=== PATIENT | female | born 1975 | race American Indian/Alaskan Native ===

== ENCOUNTER 2017-06-27 20:22 | Inpatient (IN) | payer OTHER ==
[2017-06-27] MEDS ORDERED: ZOFRAN IV ONE (21:19)
[2017-06-27] MEDS ORDERED: REGLAN IV ONE (21:19)
[2017-06-27] MEDS ORDERED: NACL 0.9% 1000 ML 1,000 ML IV ONE ×2 (21:19→21:26)
[2017-06-27] MEDS ORDERED: BENADRYL IV ONE (21:19)
[2017-06-27] MEDS ORDERED: PEPCID IV ONE (21:26)
[2017-06-27] MEDS ORDERED: DILAUDID IV ONE (21:26)
[2017-06-27 21:31] LABS: Hemoglobin 10.4 gm/dl (10.1-14.3); Mean Corpuscular HGB Conc 30 % (30-34)
[2017-06-27 21:32] LABS: Mean Corpuscular Hemoglobin 19 pg (28-32); Mean Corpuscular Volume 63 fl (79-97); Platelet Count 167 K/mm3 (140-440); Red Cell Distribution Width 25.5 % (13.2-15.2)
[2017-06-27 21:57] LABS: Alanine Aminotransferase 14 units/L (7-56); Albumin 4.2 g/dL (3.9-5); BUN/Creatinine Ratio 21; Blood Urea Nitrogen 15 mg/dL (7-17); Calcium 9.4 mg/dL (8.4-10.2); Hemolysis Index 0; Lipase 11 units/L (13-60)
[2017-06-27 22:13] LABS: Basophils % (Manual) 0 % (0.0-1.8); Eosinophils % (Manual) 0 % (0.0-4.3); Total Cells Counted 100
[2017-06-27 22:14] LABS: Anisocytosis 1+; Platelet Estimate Consistent w Auto; Poikilocytosis 1+
[2017-06-27] MEDS ORDERED: NACL ONE (22:23)
--- NOTE | 2017-06-27 23:33 | Cat Scan Report ---
FINAL REPORT PROCEDURE: CT ABDOMEN PELVIS W CON TECHNIQUE: Computerized axial tomography of the abdomen and pelvis was performed after the IV injection of iodinated nonionic contrast. HISTORY: n,v abd pain, hx of gastroparesis COMPARISON: No prior studies are available for comparison. FINDINGS: Visualized lower thorax: No significant abnormality. Liver: Normal size and attenuation. Spleen: Normal size and attenuation. Gallbladder and biliary system: The gallbladder is absent. No dilatation of the biliary ductal system. Pancreas: Normal. Adrenals: Normal. Kidneys: Normal. GI tract: The stomach is normal. The small bowel has a normal caliber. No obstruction, ileus or enteritis. The cecum, appendix and colon are normal.. Lymph nodes and mesentery: Normal. Vasculature: Normal. Bladder: Normal. Reproductive organs: There is a large uterus with multiple cystic and solid masses identified on the uterus. Multiple fibroids are possible. Other etiologies are not excluded. Further differentiation of the uterus and pelvic structures is recommended. This large uterus measures 13 x 8.1 by 7.8 centimeters.. Peritoneum: No free fluid. Musculoskeletal structures: No significant abnormality. Other: None. IMPRESSION: Enlarged uterus with multiple areas of cystic and solid density which could represent benign and malignant etiologies including large fibroids. Further evaluation with ultrasound in perhaps MRI may be appropriate. The ovaries are not seen on this examination. No evidence of intestinal or urinary tract obstruction. No ileus or enteritis. Previous cholecystectomy.
[2017-06-28 00:40] LABS: Bilirubin,Urine NEG (Negative); Blood,Urine LG (Negative); Color,Urine Yellow (Yellow); Mucus,Urine FEW /HPF; Urobilinogen,Urine < 2.0 mg/dL (<2.0)
[2017-06-28 00:41] LABS: RBC,Urine > 182.0 /HPF (0.0-6.0)
[2017-06-28] MEDS ORDERED: NACL 0.9% 1000 ML 1,000 ML IV ONE (00:48)
[2017-06-28] MEDS ORDERED: DILAUDID IV ONE (00:52)
[2017-06-28] MEDS ORDERED: ZOFRAN IV ONE (00:52)
[2017-06-28] MEDS ORDERED: PHENERGAN PR ONE (00:53)
[2017-06-28] MEDS ORDERED: ALUM-MAG HYDROX-SIMETH 200-200-20MG/5ML PO ONE (00:53)
[2017-06-28] MEDS ORDERED: LIDOCAINE VISCOUS 2% PO ONE (00:53)
--- NOTE | 2017-06-28 00:58 | Emergency Department Report ---
ED Abdominal Pain HPI - General Chief Complaint: Abdominal Pain Stated Complaint: CHEST PAIN Time Seen by Provider: 06/27/17 21:18 Source: patient Mode of arrival: Ambulatory Limitations: No Limitations - History of Present Illness Initial Comments: 41-year-old female with a past medical history diabetes, gastroparesis, hypertension, and previous cholecystectomy presents also complaining of nausea, vomiting, abdominal pain, and by mouth intolerance 1 day. Patient states she vomited over 30 times today. Occasionally blood streaked vomitus. She complains of burning aching pain to her entire abdomen worse in epigastric area radiating to the chest. Symptoms feel similar to previous gastroparesis episodes in the past. Last exacerbation was in December 2016. No complaints of fever, diarrhea, melena, or hematochezia. PMD: Dr. Yimi Steiner. She does not see a GI specialist at this time. Patient currently on her menstrual cycle Severity scale (0 -10): 10 - Related Data Home Medications Medication Instructions Recorded Confirmed Last Taken Insulin Aspart [Novolog Flexpen] 1 unit SQ QAC 04/03/13 04/03/13 04/02/13 Insulin Detemir [Levemir Flexpen] 30 units SQ QHS 04/03/13 04/03/13 04/01/13 Previous Rx's Medication Instructions Recorded Last Taken Type Cyclobenzaprine [Flexeril] 10 mg PO TID PRN #20 tablet 07/29/15 Unknown Rx Diclofenac Sodium 75 mg PO Q8H #20 tablet. 07/29/15 Unknown Rx Allergies Allergy/AdvReac Type Severity Reaction Status Date / Time No Known Allergies Allergy Verified 07/29/15 13:14 ED Review of Systems ROS: Stated complaint: CHEST PAIN Other details as noted in HPI Comment: All other systems reviewed and negative ED Past Medical Hx - Past Medical History Previous Medical History?: Yes Hx Hypertension: Yes (no meds) Hx Diabetes: Yes Hx Asthma: No Hx COPD: No Additional medical history: gastroparesis. Uterine fibroids - Surgical History Hx Cholecystectomy: Yes - Social History Smoking Status: Never Smoker Substance Use Type: None - Medications Home Medications: Home Medications Medication Instructions Recorded Confirmed Last Taken Type Insulin Aspart [Novolog Flexpen] 1 unit SQ QAC 04/03/13 04/03/13 04/02/13 History Insulin Detemir [Levemir Flexpen] 30 units SQ QHS 04/03/13 04/03/13 04/01/13 History Cyclobenzaprine [Flexeril] 10 mg PO TID PRN #20 tablet 07/29/15 Unknown Rx Diclofenac Sodium 75 mg PO Q8H #20 tablet. 07/29/15 Unknown Rx ED Physical Exam - General Limitations: No Limitations - Other Other exam information: General: Moderate distress actively vomiting Head exam: Atraumatic, normocephalic Eyes exam: Normal appearance, nonicteric sclerae ENT: Dry mucous memory Neck exam: Normal inspection, full range of motion, no meningismus nontender Respiratory exam: Clear to auscultation bilateral, no wheezes, rales, crackles Cardiovascular: Tachycardic regular rhythm Abdomen: Soft, nondistended, generalized tenderness greatest in the epigastric area, normal bowel sounds, no rebound or guarding Extremity: Full range of motion normal inspection no deformity Back: Normal Inspection, full range of motion, no tenderness Neurologic: Alert, oriented x3, cranial nerves intact, no motor or sensory deficit Psychiatric: normal affect, normal mood Skin: Warm, dry, intact ED Course Vital Signs 06/27/17 20:47 Temperature 98.3 F Pulse Rate 108 H Respiratory 17 Rate Blood Pressure 148/95 O2 Sat by Pulse 99 Oximetry - Reevaluation(s) Reevaluation #1: 06/28/17 00:56 After receiving Zofran, Reglan, Benadryl, Pepcid, 1 L normal saline, and Dilaudid. She continues to have pain and nausea. ED Medical Decision Making - Lab Data Result diagrams: 06/27/17 21:18 06/27/17 21:18 Lab Results 06/27/17 06/27/17 06/27/17 Range/Units 21:18 21:18 21:22 WBC 16.1 H (4.5-11.0) K/mm3 RBC 5.60 H (3.65-5.03) M/mm3 Hgb 10.4 (10.1-14.3) gm/dl Hct 35.0 (30.3-42.9) % MCV 63 L (79-97) fl MCH 19 L (28-32) pg MCHC 30 (30-34) % RDW 25.5 H (13.2-15.2) % Plt Count 167 (140-440) K/mm3 Add Manual Diff Complete Total Counted 100 Seg Neutrophils % Property Management Assistant Seg Neuts % (Manual) 96.0 H (40.0-70.0) % Band Neutrophils % 0 % Lymphocytes % (Manual) 3.0 L (13.4-35.0) % Reactive Lymphs % (Man) 0 % Monocytes % (Manual) 1.0 (0.0-7.3) % Eosinophils % (Manual) 0 (0.0-4.3) % Basophils % (Manual) 0 (0.0-1.8) % Metamyelocytes % 0 % Myelocytes % 0 % Promyelocytes % 0 % Blast Cells % 0 % Nucleated RBC % Not Reportable Seg Neutrophils # Man 15.5 H (1.8-7.7) K/mm3 Band Neutrophils # 0.0 K/mm3 Lymphocytes # (Manual) 0.5 L (1.2-5.4) K/mm3 Abs React Lymphs (Man) 0.0 K/mm3 Monocytes # (Manual) 0.2 (0.0-0.8) K/mm3 Eosinophils # (Manual) 0.0 (0.0-0.4) K/mm3 Basophils # (Manual) 0.0 (0.0-0.1) K/mm3 Metamyelocytes # 0.0 K/mm3 Myelocytes # 0.0 K/mm3 Promyelocytes # 0.0 K/mm3 Blast Cells # 0.0 K/mm3 WBC Morphology Not Reportable Hypersegmented Neuts Not Reportable Hyposegmented Neuts Not Reportable Hypogranular Neuts Not Reportable Smudge Cells Not Reportable Toxic Granulation Not Reportable Toxic Vacuolation Not Reportable Dohle Bodies Not Reportable Pelger-Huet Anomaly Not Reportable [place] Rods Not Reportable Platelet Estimate Consistent w auto Clumped Platelets Not Reportable Plt Clumps, EDTA Not Reportable Large Platelets Not Reportable Giant Platelets Not Reportable Platelet Satelliting Not Reportable Plt Morphology Comment Not Reportable RBC Morphology Not Reportable Dimorphic RBCs Not Reportable Polychromasia Not Reportable Hypochromasia Not Reportable Poikilocytosis 1+ Anisocytosis 1+ Microcytosis Few Macrocytosis Not Reportable Spherocytes Not Reportable Pappenheimer Bodies Not Reportable Sickle Cells Not Reportable Target Cells Not Reportable Tear Drop Cells Not Reportable Ovalocytes Not Reportable Helmet Cells Not Reportable [place] Bodies Not Reportable [place] Rings Not Reportable Webb Cells Not Reportable Bite Cells Not Reportable Crenated Cell Not Reportable Elliptocytes Not Reportable Acanthocytes (Spur) Not Reportable Rouleaux Not Reportable Hemoglobin C Crystals Not Reportable Schistocytes Not Reportable Malaria parasites Not Reportable Vikash Bodies Not Reportable Hem Pathologist Commnt No Sodium 143 (137-145) mmol/L Potassium 4.2 (3.6-5.0) mmol/L Chloride 99.8 (98-107) mmol/L Carbon Dioxide 20 L (22-30) mmol/L Anion Gap 27 mmol/L BUN 15 (7-17) mg/dL Creatinine 0.7 (0.7-1.2) mg/dL Estimated GFR > 60 ml/min BUN/Creatinine Ratio 21 % Glucose 190 H (65-100) mg/dL POC Glucose (70-105) Calcium 9.4 (8.4-10.2) mg/dL Total Bilirubin 0.40 (0.1-1.2) mg/dL AST 16 (5-40) units/L ALT 14 (7-56) units/L Alkaline Phosphatase 86 (35-129) units/L Troponin T < 0.010 (0.00-0.029) ng/mL Total Protein 7.5 (6.3-8.2) g/dL Albumin 4.2 (3.9-5) g/dL Albumin/Globulin Ratio 1.3 % Lipase 11 L (13-60) units/L HCG, Qual Negative (Negative) Urine Color (Yellow) Urine Turbidity (Clear) Urine pH (5.0-7.0) Ur Specific [place] (1.003-1.030) Urine Protein (Negative) mg/dL Urine Glucose (UA) (Negative) mg/dL Urine Ketones (Negative) mg/dL Urine Blood (Negative) Urine Nitrite (Negative) Urine Bilirubin (Negative) Urine Urobilinogen (<2.0) mg/dL Ur Leukocyte Esterase (Negative) Urine WBC (Auto) (0.0-6.0) /HPF Urine RBC (Auto) (0.0-6.0) /HPF U Epithel Cells (Auto) (0-13.0) /HPF Urine Mucus /HPF 04/01/18 04/01/18 04/02/18 Range/Units 21:32 23:32 00:24 WBC (4.5-11.0) K/mm3 RBC (3.65-5.03) M/mm3 Hgb (10.1-14.3) gm/dl Hct (30.3-42.9) % MCV (79-97) fl MCH (28-32) pg MCHC (30-34) % RDW (13.2-15.2) % Plt Count (140-440) K/mm3 Add Manual Diff Total Counted Seg Neutrophils % Seg Neuts % (Manual) (40.0-70.0) % Band Neutrophils % % Lymphocytes % (Manual) (13.4-35.0) % Reactive Lymphs % (Man) % Monocytes % (Manual) (0.0-7.3) % Eosinophils % (Manual) (0.0-4.3) % Basophils % (Manual) (0.0-1.8) % Metamyelocytes % % Myelocytes % % Promyelocytes % % Blast Cells % % Nucleated RBC % Seg Neutrophils # Man (1.8-7.7) K/mm3 Band Neutrophils # K/mm3 Lymphocytes # (Manual) (1.2-5.4) K/mm3 Abs React Lymphs (Man) K/mm3 Monocytes # (Manual) (0.0-0.8) K/mm3 Eosinophils # (Manual) (0.0-0.4) K/mm3 Basophils # (Manual) (0.0-0.1) K/mm3 Metamyelocytes # K/mm3 Myelocytes # K/mm3 Promyelocytes # K/mm3 Blast Cells # K/mm3 WBC Morphology Hypersegmented Neuts Hyposegmented Neuts Hypogranular Neuts Smudge Cells Toxic Granulation Toxic Vacuolation Dohle Bodies Pelger-Huet Anomaly Lorelei Rods Platelet Estimate Clumped Platelets Plt Clumps, EDTA Large Platelets Giant Platelets Platelet Satelliting Plt Morphology Comment RBC Morphology Dimorphic RBCs Polychromasia Hypochromasia Poikilocytosis Anisocytosis Microcytosis Macrocytosis Spherocytes Pappenheimer Bodies Sickle Cells Target Cells Tear Drop Cells Ovalocytes Helmet Cells [place] Bodies [place] Rings [place] Cells Bite Cells Crenated Cell Elliptocytes Acanthocytes (Spur) Rouleaux Hemoglobin C Crystals Schistocytes Malaria parasites Vikash Bodies Hem Pathologist Commnt Sodium (137-145) mmol/L Potassium (3.6-5.0) mmol/L Chloride (98-107) mmol/L Carbon Dioxide (22-30) mmol/L Anion Gap mmol/L BUN (7-17) mg/dL Creatinine (0.7-1.2) mg/dL Estimated GFR ml/min BUN/Creatinine Ratio % Glucose (65-100) mg/dL POC Glucose 134 H (70-105) Calcium (8.4-10.2) mg/dL Total Bilirubin (0.1-1.2) mg/dL AST (5-40) units/L ALT (7-56) units/L Alkaline Phosphatase (35-129) units/L Troponin T < 0.010 (0.00-0.029) ng/mL Total Protein (6.3-8.2) g/dL Albumin (3.9-5) g/dL Albumin/Globulin Ratio % Lipase (13-60) units/L HCG, Qual (Negative) Urine Color Yellow (Yellow) Urine Turbidity Clear (Clear) Urine pH 5.0 (5.0-7.0) Ur Specific [place] 1.051 H (1.003-1.030) Urine Protein 30 mg/dl (Negative) mg/dL Urine Glucose (UA) >=500 (Negative) mg/dL Urine Ketones 80 (Negative) mg/dL Urine Blood Lg (Negative) Urine Nitrite Neg (Negative) Urine Bilirubin Neg (Negative) Urine Urobilinogen < 2.0 (<2.0) mg/dL Ur Leukocyte Esterase Neg (Negative) Urine WBC (Auto) 1.0 (0.0-6.0) /HPF Urine RBC (Auto) > 182.0 (0.0-6.0) /HPF U Epithel Cells (Auto) 2.0 (0-13.0) /HPF Urine Mucus Few /HPF - Radiology Data Radiology results: report reviewed ct a/p IV constrast: IMPRESSION: Enlarged uterus with multiple areas of cystic and solid density which could represent benign and malignant etiologies including large fibroids. Further evaluation with ultrasound in perhaps MRI may be appropriate. The ovaries are not seen on this examination. No evidence of intestinal or urinary tract obstruction. No ileus or enteritis. Previous cholecystectomy. - Medical Decision Making patient continues to have pain and nausea despite treatment. She complains of burning to epigastric area. Additional nausea medication ordered as well as GI cocktail including lidocaine and Maalox. Patient has a very high specific gravity and ketones a urine even after receiving 1 L of IV fluids. She will be admitted to the hospital for further treatment of gastroparesis, dehydration, and pain. - Differential Diagnosis gastroparesis, biliary colic, pancreatitis, obstruction, UTI, Dka Critical Care Time: No Critical care attestation.: If time is entered above; I have spent that time in minutes in the direct care of this critically ill patient, excluding procedure time. ED Disposition Clinical Impression: Gastroparesis due to DM, Abdominal pain, Vomiting, Dehydration Disposition: OP ADMIT IP TO THIS HOSP Is pt being admited?: Yes Condition: Stable Time of Disposition: 01:01 (Dr Chatman/hosp)
[2017-06-28] MEDS ORDERED: SODIUM CHLORIDE FLUSH SYRINGE 10 ML IV PRN (01:59)
[2017-06-28] MEDS ORDERED: MORPHINE IV PRN (01:59)
--- NOTE | 2017-06-28 02:01 | History and Physical Report ---
History of Present Illness Date of examination: 06/28/17 History of present illness: 41 year-old female with a history of diabetic gastroparesis, hypertension, GERD comes to emergency room with complaints of nausea vomiting that started yesterday, unable to tolerate oral intake. Also complaining of left sided abdominal pain which she described as a dull pain, intermittent in nature and lasted for a few seconds, intensity 6/10, no radiation, she cannot identify exacerbating or relieving factors Review Of Systems: Constitutional: no weight loss Ears, eyes, nose, mouth and throat: no nasal congestion, no nasal discharge, no sinus pressure, blurry vision, diplopia Neck: No neck pain or rigidity. Cardiovascular: no chest pain, orthopnea, palpitations Respiratory: no shortness of breath, cough Gastrointestinal: no hematochezia Genitourinary : no dysuria, frequency , hematuria Musculoskeletal: no muscle ache Integumentary: no rash, no pruritis Neurological: no parathesias, focal weakness Endocrine: no cold or heat intolerance, no polyuria or polydipsia Hematologic/Lymphatic: no easy bruising, no easy bleeding, no gland swelling Allergic/Immunologic: no urticaria, no angioedema. Past Medical History: diabetes , GERD, hypertension, gastroparesis Past Surgical History: cholecystectomy, tubal ligation, knee surgery Social history: denies: smoking, alcohol abuse, prescription drug abuse Family history: diabetes, hypertension Medications and Allergies Allergies Allergy/AdvReac Type Severity Reaction Status Date / Time No Known Allergies Allergy Verified 07/29/15 13:14 Home Medications Medication Instructions Recorded Confirmed Last Taken Type Insulin Detemir [Levemir Flexpen] 25 units SQ QHS 04/03/13 06/28/17 06/26/17 History 25 units Insulin Regular, Human 1 units SQ TID MDD 7 06/28/17 06/28/17 06/26/17 History 7 units Ondansetron [Zofran TAB] 4 mg PO Q8HR PRN #15 tablet 07/02/17 Unknown Rx hydrALAZINE [Apresoline TAB] 10 mg PO Q8HR #30 tablet 07/02/17 Unknown Rx oxyCODONE /ACETAMINOPHEN [Percocet 1 tab PO BID PRN #10 tablet 07/02/17 Unknown Rx 5/325] Exam - Physical Exam Narrative exam: Gen. appearance: Patient lying in bed, no apparent distress HEENT: Normocephalic, atraumatic, pupils equally round and reactive to light, extraocular movement intact, and no sclericterus,. No JVD or thyromegaly or nodule,neck supple, no carotid bruit ,mucous membranes moist, no exudate or erythema Heart: S1, S2, regular rate and rhythm Lungs:Clear to ascultation , breathing comfortable Abdomen: Positive bowel sounds, nontender, nondistended, no organomegaly Extremity: No edema, cyanosis, clubbing Skin: No rash, nodules, warm, dry Neuro: Oriented 3, cranial nerves II-12 intact, speech is fluent, motor and sensory intact - Constitutional Vitals: Temp Pulse Resp BP Pulse Ox 98.4 F 116 H 20 161/92 100 06/28/17 01:28 06/28/17 01:28 06/28/17 01:28 06/28/17 01:28 06/28/17 01:28 Results - Labs CBC & Chem 7: 07/02/17 10:19 07/02/17 04:13 Labs: Abnormal lab results 06/27/17 06/27/17 06/27/17 Range/Units 21:18 21:18 21:32 WBC 16.1 H (4.5-11.0) K/mm3 RBC 5.60 H (3.65-5.03) M/mm3 MCV 63 L (79-97) fl MCH 19 L (28-32) pg RDW 25.5 H (13.2-15.2) % Seg Neuts % (Manual) 96.0 H (40.0-70.0) % Lymphocytes % (Manual) 3.0 L (13.4-35.0) % Seg Neutrophils # Man 15.5 H (1.8-7.7) K/mm3 Lymphocytes # (Manual) 0.5 L (1.2-5.4) K/mm3 Carbon Dioxide 20 L (22-30) mmol/L Glucose 190 H (65-100) mg/dL POC Glucose 134 H (70-105) Lipase 11 L (13-60) units/L Ur Specific [place] (1.003-1.030) 06/28/17 Range/Units 00:24 WBC (4.5-11.0) K/mm3 RBC (3.65-5.03) M/mm3 MCV (79-97) fl MCH (28-32) pg RDW (13.2-15.2) % Seg Neuts % (Manual) (40.0-70.0) % Lymphocytes % (Manual) (13.4-35.0) % Seg Neutrophils # Man (1.8-7.7) K/mm3 Lymphocytes # (Manual) (1.2-5.4) K/mm3 Carbon Dioxide (22-30) mmol/L Glucose (65-100) mg/dL POC Glucose (70-105) Lipase (13-60) units/L Ur Specific [place] 1.051 H (1.003-1.030) - Imaging and Cardiology EKG: image reviewed CT scan - abdomen: report reviewed CT scan - pelvis: report reviewed Assessment and Plan Assessment Acute on chronic gastroparesis Abdominal pain nonspecific Diabetes GERD Plan Admit to medicine Start IV fluids, antiemetics IV morphine Continueappropiate outpatient medications check fingersticks and initiate insulin sliding scale DVT prophylaxis
[2017-06-28] MEDS: TYLENOL PO PRN ×2 (03:39→13:57)
[2017-06-28] MEDS: NACL 0.45% 1000 ML 1,000 ML IV SCH (06:44)
[2017-06-28] MEDS: REGLAN IV PRN (07:55)
[2017-06-28] MEDS ORDERED: DILAUDID ONE (08:15)
[2017-06-28] MEDS: DILAUDID IV PRN ×3 (08:21→22:14)
[2017-06-28] MEDS ORDERED: LOVENOX SUB-Q SCH (10:00)
[2017-06-28] MEDS: ZOFRAN IV PRN ×3 (10:52→22:12)
[2017-06-28] MEDS: LOVENOX SUB-Q SCH (10:58)
[2017-06-28] MEDS: SODIUM CHLORIDE FLUSH SYRINGE 10 ML IV SCH (11:00)
[2017-06-28] MEDS ORDERED: PEPCID IV ONE (12:42)
[2017-06-28] MEDS: HumuLIN R SUB-Q SCH ×3 (12:48→22:52)
--- NOTE | 2017-06-28 15:08 | Event Note ---
<MARSHA KNIGHT - Last Filed: 06/28/17 15:08> Date: 06/28/17 Patient was seen and evaluated at the bedside, patient was admitted this morning for NV and abdominal pain, she continues to complain of nausea and abd pain, appears to be in mild distress, continue management per H&P with the following changes-Pt initiated on Pepcid 20mg BID Dilaudid 0.5 Q6HR, SSI for DM <SABINA DELUCA - Last Filed: 06/28/17 19:22> Patient seen and examined medical records reviewed Has intractable nausea vomiting, request for more pain medications Blood sugars are uncontrolled Resume Levemir start 10 units Novolin every before meals at bedtime Encourage oral nutrition Closely monitor Plan of care reviewed with the patient and her nurse
[2017-06-28] MEDS ORDERED: LANTUS SUB-Q SCH (22:00)
[2017-06-28] MEDS: PEPCID IV SCH (22:12)
[2017-06-29] MEDS: SODIUM CHLORIDE FLUSH SYRINGE 10 ML IV SCH ×2 (01:07→09:22)
[2017-06-29] MEDS: REGLAN IV PRN (03:14)
[2017-06-29 06:26] LABS: Mean Corpuscular HGB Conc 29 % (30-34); Red Blood Count 5.29 M/mm3 (3.65-5.03)
[2017-06-29 06:30] LABS: Hematocrit 34.6 % (30.3-42.9); Hemoglobin 9.9 gm/dl (10.1-14.3); Mean Corpuscular Hemoglobin 19 pg (28-32); Mean Corpuscular Volume 66 fl (79-97); Platelet Count 241 K/mm3 (140-440); Red Cell Distribution Width 26.6 % (13.2-15.2)
[2017-06-29] MEDS: DILAUDID IV PRN (06:55)
[2017-06-29] MEDS: ZOFRAN IV PRN (07:06)
[2017-06-29 07:54] LABS: Anisocytosis 2+; Band Neutrophils # (Manual) 0.4 K/mm3; Basophils % (Manual) 0 % (0.0-1.8); Eosinophils % (Manual) 0 % (0.0-4.3); Poikilocytosis 2+; Total Cells Counted 100
[2017-06-29 07:55] LABS: Acanthocytes 1+; Burr Cells Few; Giant Platelets Rare; Helmet Cells Rare; Hypochromasia 1+; Large Platelets Few; Ovalocytes 1+; Schistocytes Rare; Tear Drop Cells Few
[2017-06-29] MEDS: NACL 0.45% 1000 ML 1,000 ML IV SCH (08:27)
--- NOTE | 2017-06-29 08:58 | Progress Note ---
<MARSHA KNIGHT - Last Filed: 06/29/17 15:35> Assessment and Plan Assessment and plan: 41 year-old female admitted for nausea vomiting that one day prior to admission , unable to tolerate oral intake DKA Patient's glucose was uncontrolled and she developed severe acidosis with bicarbonate of 7-8, anion gap 35 (began to close on repeat lab 26) Aggressive IVF were initiated along with bicarb, final repeat today bicarb was 13, Orders were placed for pt to be transferred to ICU for DKA protocol, once there her glucose levels began to decrease without insulin drip, pt will be monitored and likely to be transferred back to medical floor Diabetes ADA diet, Accu checks, Insulin regimen, SSI Hyperkalemia Kayexalate was given, repeat K was normal Acute on chronic gastroparesis IV fluids, antiemetics IV Dilaudid Abdominal pain nonspecific CT of the abdomen showed no evidence of intestinal or urinary tract obstruction. No ileus or enteritis. Enlarged uterus with multiple areas of cystic and solid density which could represent benign and malignant etiologies including large fibroids. Supportive care GERD Pepcid DVT prophylaxis Lovenox History Interval history: Patient seen and examined. Ill appearing, lethargic, still complains of abdominal pain with NV. Labs, nursing and chart notes reviewed. Hospitalist Physical - Constitutional Vitals: Temp Pulse Resp BP Pulse Ox 97.9 F 115 H 18 92/46 93 06/29/17 01:32 06/29/17 01:32 06/29/17 01:32 06/29/17 01:32 06/29/17 01:32 General appearance: Present: no acute distress, cachectic - EENT Eyes: Present: PERRL, EOM intact ENT: hearing intact, clear oral mucosa - Neck Neck: Present: supple, normal ROM - Respiratory Respiratory effort: normal Respiratory: bilateral: CTA - Cardiovascular Rhythm: regular Heart Sounds: Present: S1 & S2 - Extremities Extremities: no ischemia, No edema - Abdominal General gastrointestinal: soft, non-distended, normal bowel sounds - Integumentary Integumentary: Present: clear, warm, dry - Psychiatric Psychiatric: appropriate mood/affect, intact judgment & insight, cooperative - Neurologic Neurologic: CNII-XII intact, moves all extremities - Allied Health Allied health notes reviewed: nursing Results - Labs CBC & Chem 7: 06/29/17 05:53 06/29/17 13:09 Labs: Laboratory Last Values WBC 18.6 K/mm3 (4.5-11.0) H 06/29/17 05:53 RBC 5.29 M/mm3 (3.65-5.03) H 06/29/17 05:53 Hgb 9.9 gm/dl (10.1-14.3) L 06/29/17 05:53 Hct 34.6 % (30.3-42.9) 06/29/17 05:53 MCV 66 fl (79-97) L 06/29/17 05:53 MCH 19 pg (28-32) L 06/29/17 05:53 MCHC 29 % (30-34) L 06/29/17 05:53 RDW 26.6 % (13.2-15.2) H 06/29/17 05:53 Plt Count 241 K/mm3 (140-440) 06/29/17 05:53 Add Manual Diff Complete 06/29/17 05:53 Total Counted 100 06/29/17 05:53 Seg Neutrophils % Warehouse Coordinator 06/27/17 21:18 Seg Neuts % (Manual) 88.0 % (40.0-70.0) H 06/29/17 05:53 Band Neutrophils % 2.0 % 06/29/17 05:53 Lymphocytes % (Manual) 8.0 % (13.4-35.0) L 06/29/17 05:53 Reactive Lymphs % (Man) 0 % 06/29/17 05:53 Monocytes % (Manual) 2.0 % (0.0-7.3) 06/29/17 05:53 Eosinophils % (Manual) 0 % (0.0-4.3) 06/29/17 05:53 Basophils % (Manual) 0 % (0.0-1.8) 06/29/17 05:53 Metamyelocytes % 0 % 06/29/17 05:53 Myelocytes % 0 % 06/29/17 05:53 Promyelocytes % 0 % 06/29/17 05:53 Blast Cells % 0 % 06/29/17 05:53 Nucleated RBC % Not Reportable 06/29/17 05:53 Seg Neutrophils # Man 16.4 K/mm3 (1.8-7.7) H 06/29/17 05:53 Band Neutrophils # 0.4 K/mm3 06/29/17 05:53 Lymphocytes # (Manual) 1.5 K/mm3 (1.2-5.4) 06/29/17 05:53 Abs React Lymphs (Man) 0.0 K/mm3 06/29/17 05:53 Monocytes # (Manual) 0.4 K/mm3 (0.0-0.8) 06/29/17 05:53 Eosinophils # (Manual) 0.0 K/mm3 (0.0-0.4) 06/29/17 05:53 Basophils # (Manual) 0.0 K/mm3 (0.0-0.1) 06/29/17 05:53 Metamyelocytes # 0.0 K/mm3 06/29/17 05:53 Myelocytes # 0.0 K/mm3 06/29/17 05:53 Promyelocytes # 0.0 K/mm3 06/29/17 05:53 Blast Cells # 0.0 K/mm3 06/29/17 05:53 WBC Morphology Not Reportable 06/29/17 05:53 Hypersegmented Neuts Not Reportable 06/29/17 05:53 Hyposegmented Neuts Not Reportable 06/29/17 05:53 Hypogranular Neuts Not Reportable 06/29/17 05:53 Smudge Cells Not Reportable 06/29/17 05:53 Toxic Granulation Not Reportable 06/29/17 05:53 Toxic Vacuolation Not Reportable 06/29/17 05:53 Dohle Bodies Not Reportable 06/29/17 05:53 Pelger-Huet Anomaly Not Reportable 06/29/17 05:53 Lorelei Rods Not Reportable 06/29/17 05:53 Platelet Estimate Appears normal 06/29/17 05:53 Clumped Platelets Not Reportable 06/29/17 05:53 Plt Clumps, EDTA Not Reportable 06/29/17 05:53 Large Platelets Few 06/29/17 05:53 Giant Platelets Rare 06/29/17 05:53 Platelet Satelliting Not Reportable 06/29/17 05:53 Plt Morphology Comment Not Reportable 06/29/17 05:53 RBC Morphology Not Reportable 06/29/17 05:53 Dimorphic RBCs Not Reportable 06/29/17 05:53 Polychromasia 1+ 06/29/17 05:53 Hypochromasia 1+ 06/29/17 05:53 Poikilocytosis 2+ 06/29/17 05:53 Anisocytosis 2+ 06/29/17 05:53 Microcytosis 1+ 06/29/17 05:53 Macrocytosis Not Reportable 06/29/17 05:53 Spherocytes Not Reportable 06/29/17 05:53 Pappenheimer Bodies Not Reportable 06/29/17 05:53 Sickle Cells Not Reportable 06/29/17 05:53 Target Cells Not Reportable 06/29/17 05:53 Tear Drop Cells Few 06/29/17 05:53 Ovalocytes 1+ 06/29/17 05:53 Helmet Cells Rare 06/29/17 05:53 [place] Bodies Not Reportable 06/29/17 05:53 [place] Rings Not Reportable 06/29/17 05:53 [place] Cells Few 06/29/17 05:53 Bite Cells Not Reportable 06/29/17 05:53 Crenated Cell Not Reportable 06/29/17 05:53 Elliptocytes Few 06/29/17 05:53 Acanthocytes (Spur) 1+ 06/29/17 05:53 Rouleaux Not Reportable 06/29/17 05:53 Hemoglobin C Crystals Not Reportable 06/29/17 05:53 Schistocytes Rare 06/29/17 05:53 Malaria parasites Not Reportable 06/29/17 05:53 Vikash Bodies Not Reportable 06/29/17 05:53 Hem Pathologist Commnt No 06/29/17 05:53 Sodium 143 mmol/L (137-145) 06/29/17 05:53 Potassium 5.8 mmol/L (3.6-5.0) H D 06/29/17 05:53 Chloride 106.5 mmol/L (98-107) 06/29/17 05:53 Carbon Dioxide 7 mmol/L (22-30) L* D 06/29/17 05:53 Anion Gap 35 mmol/L 06/29/17 05:53 BUN 30 mg/dL (7-17) H 06/29/17 05:53 Creatinine 1.2 mg/dL (0.7-1.2) D 06/29/17 05:53 Estimated GFR 59 ml/min 06/29/17 05:53 BUN/Creatinine Ratio 25 % 06/29/17 05:53 Glucose 248 mg/dL (65-100) H 06/29/17 05:53 POC Glucose 264 (70-105) H 06/29/17 05:54 Hemoglobin A1c 9.0 % (4-6) H 06/28/17 12:45 Calcium 9.0 mg/dL (8.4-10.2) 06/29/17 05:53 Total Bilirubin 0.40 mg/dL (0.1-1.2) 06/27/17 21:18 AST 16 units/L (5-40) 06/27/17 21:18 ALT 14 units/L (7-56) 06/27/17 21:18 Alkaline Phosphatase 86 units/L (35-129) 06/27/17 21:18 Troponin T < 0.010 ng/mL (0.00-0.029) 06/27/17 23:32 Total Protein 7.5 g/dL (6.3-8.2) 06/27/17 21:18 Albumin 4.2 g/dL (3.9-5) 06/27/17 21:18 Albumin/Globulin Ratio 1.3 % 06/27/17 21:18 Lipase 11 units/L (13-60) L 06/27/17 21:18 HCG, Qual Negative (Negative) 06/27/17 21:22 Urine Color Yellow (Yellow) 06/28/17 00:24 Urine Turbidity Clear (Clear) 06/28/17 00:24 Urine pH 5.0 (5.0-7.0) 06/28/17 00:24 Ur Specific [place] 1.051 (1.003-1.030) H 06/28/17 00:24 Urine Protein 30 mg/dl mg/dL (Negative) 06/28/17 00:24 Urine Glucose (UA) >=500 mg/dL (Negative) 06/28/17 00:24 Urine Ketones 80 mg/dL (Negative) 06/28/17 00:24 Urine Blood Lg (Negative) 06/28/17 00:24 Urine Nitrite Neg (Negative) 06/28/17 00:24 Urine Bilirubin Neg (Negative) 06/28/17 00:24 Urine Urobilinogen < 2.0 mg/dL (<2.0) 06/28/17 00:24 Ur Leukocyte Esterase Neg (Negative) 06/28/17 00:24 Urine WBC (Auto) 1.0 /HPF (0.0-6.0) 06/28/17 00:24 Urine RBC (Auto) > 182.0 /HPF (0.0-6.0) 06/28/17 00:24 U Epithel Cells (Auto) 2.0 /HPF (0-13.0) 06/28/17 00:24 Urine Mucus Few /HPF 06/28/17 00:24 <SABINA DELUCA - Last Filed: 06/29/17 18:58> History Interval history: I saw and evaluated the patient. I agree with the findings and the plan of care as documented in the Nurse Practitioner's~note, with the following corrections and additions. The patient was transferred to ICU on DKA protocol, after treatment with vigorous IV hydration, IV sodium bicarbonate Insulin and clear liquids advance to ADA diet Patient's acidosis and anion gap mildly improved Patient started on diet, and low-dose of long-acting insulin Closely up so for a few hours, and transfer out of ICU to medical floor if stable Critical care time 35 minutes Hospitalist Physical - Constitutional Vitals: Temp Pulse Resp BP Pulse Ox 98.1 F 122 H 16 132/85 100 06/29/17 15:55 06/29/17 16:56 06/29/17 16:56 06/29/17 12:51 06/29/17 16:56 Results - Labs CBC & Chem 7: 06/29/17 05:53 06/29/17 15:18 Labs: Laboratory Last Values WBC 18.6 K/mm3 (4.5-11.0) H 06/29/17 05:53 RBC 5.29 M/mm3 (3.65-5.03) H 06/29/17 05:53 Hgb 9.9 gm/dl (10.1-14.3) L 06/29/17 05:53 Hct 34.6 % (30.3-42.9) 06/29/17 05:53 MCV 66 fl (79-97) L 06/29/17 05:53 MCH 19 pg (28-32) L 06/29/17 05:53 MCHC 29 % (30-34) L 06/29/17 05:53 RDW 26.6 % (13.2-15.2) H 06/29/17 05:53 Plt Count 241 K/mm3 (140-440) 06/29/17 05:53 Add Manual Diff Complete 06/29/17 05:53 Total Counted 100 06/29/17 05:53 Seg Neutrophils % Warehouse Coordinator 06/27/17 21:18 Seg Neuts % (Manual) 88.0 % (40.0-70.0) H 06/29/17 05:53 Band Neutrophils % 2.0 % 06/29/17 05:53 Lymphocytes % (Manual) 8.0 % (13.4-35.0) L 06/29/17 05:53 Reactive Lymphs % (Man) 0 % 06/29/17 05:53 Monocytes % (Manual) 2.0 % (0.0-7.3) 06/29/17 05:53 Eosinophils % (Manual) 0 % (0.0-4.3) 06/29/17 05:53 Basophils % (Manual) 0 % (0.0-1.8) 06/29/17 05:53 Metamyelocytes % 0 % 06/29/17 05:53 Myelocytes % 0 % 06/29/17 05:53 Promyelocytes % 0 % 06/29/17 05:53 Blast Cells % 0 % 06/29/17 05:53 Nucleated RBC % Not Reportable 06/29/17 05:53 Seg Neutrophils # Man 16.4 K/mm3 (1.8-7.7) H 06/29/17 05:53 Band Neutrophils # 0.4 K/mm3 06/29/17 05:53 Lymphocytes # (Manual) 1.5 K/mm3 (1.2-5.4) 06/29/17 05:53 Abs React Lymphs (Man) 0.0 K/mm3 06/29/17 05:53 Monocytes # (Manual) 0.4 K/mm3 (0.0-0.8) 06/29/17 05:53 Eosinophils # (Manual) 0.0 K/mm3 (0.0-0.4) 06/29/17 05:53 Basophils # (Manual) 0.0 K/mm3 (0.0-0.1) 06/29/17 05:53 Metamyelocytes # 0.0 K/mm3 06/29/17 05:53 Myelocytes # 0.0 K/mm3 06/29/17 05:53 Promyelocytes # 0.0 K/mm3 06/29/17 05:53 Blast Cells # 0.0 K/mm3 06/29/17 05:53 WBC Morphology Not Reportable 06/29/17 05:53 Hypersegmented Neuts Not Reportable 06/29/17 05:53 Hyposegmented Neuts Not Reportable 06/29/17 05:53 Hypogranular Neuts Not Reportable 06/29/17 05:53 Smudge Cells Not Reportable 06/29/17 05:53 Toxic Granulation Not Reportable 06/29/17 05:53 Toxic Vacuolation Not Reportable 06/29/17 05:53 Dohle Bodies Not Reportable 06/29/17 05:53 Pel[place] Anomaly Not Reportable 06/29/17 05:53 Lorelei Rods Not Reportable 06/29/17 05:53 Platelet Estimate Appears normal 06/29/17 05:53 Clumped Platelets Not Reportable 06/29/17 05:53 Plt Clumps, EDTA Not Reportable 06/29/17 05:53 Large Platelets Few 06/29/17 05:53 Giant Platelets Rare 06/29/17 05:53 Platelet Satelliting Not Reportable 06/29/17 05:53 Plt Morphology Comment Not Reportable 06/29/17 05:53 RBC Morphology Not Reportable 06/29/17 05:53 Dimorphic RBCs Not Reportable 06/29/17 05:53 Polychromasia 1+ 06/29/17 05:53 Hypochromasia 1+ 06/29/17 05:53 Poikilocytosis 2+ 06/29/17 05:53 Anisocytosis 2+ 06/29/17 05:53 Microcytosis 1+ 06/29/17 05:53 Macrocytosis Not Reportable 06/29/17 05:53 Spherocytes Not Reportable 06/29/17 05:53 Pappenheimer Bodies Not Reportable 06/29/17 05:53 Sickle Cells Not Reportable 06/29/17 05:53 Target Cells Not Reportable 06/29/17 05:53 Tear Drop Cells Few 06/29/17 05:53 Ovalocytes 1+ 06/29/17 05:53 Helmet Cells Rare 06/29/17 05:53 [place] Bodies Not Reportable 06/29/17 05:53 [place] Rings Not Reportable 06/29/17 05:53 [place] Cells Few 06/29/17 05:53 Bite Cells Not Reportable 06/29/17 05:53 Crenated Cell Not Reportable 06/29/17 05:53 Elliptocytes Few 06/29/17 05:53 Acanthocytes (Spur) 1+ 06/29/17 05:53 Rouleaux Not Reportable 06/29/17 05:53 Hemoglobin C Crystals Not Reportable 06/29/17 05:53 Schistocytes Rare 06/29/17 05:53 [place] parasites Not Reportable 06/29/17 05:53 Vikash Bodies Not Reportable 06/29/17 05:53 Hem Pathologist Commnt No 06/29/17 05:53 Sodium 148 mmol/L (137-145) H 06/29/17 15:18 Potassium 4.4 mmol/L (3.6-5.0) 06/29/17 15:18 Chloride 115.8 mmol/L (98-107) H 06/29/17 15:18 Carbon Dioxide 13 mmol/L (22-30) L 06/29/17 15:18 Anion Gap 24 mmol/L 06/29/17 15:18 BUN 24 mg/dL (7-17) H 06/29/17 15:18 Creatinine 0.9 mg/dL (0.7-1.2) 06/29/17 15:18 Estimated GFR > 60 ml/min 06/29/17 15:18 BUN/Creatinine Ratio 27 % 06/29/17 15:18 Glucose 123 mg/dL (65-100) H 06/29/17 15:18 POC Glucose 129 (70-105) H 06/29/17 17:18 Hemoglobin A1c 9.0 % (4-6) H 06/28/17 12:45 Calcium 9.0 mg/dL (8.4-10.2) 06/29/17 15:18 Phosphorus 3.20 mg/dL (2.5-4.5) 06/29/17 11:27 Magnesium 3.00 mg/dL (1.7-2.3) H 06/29/17 11:27 Total Bilirubin 0.40 mg/dL (0.1-1.2) 06/27/17 21:18 AST 16 units/L (5-40) 06/27/17 21:18 ALT 14 units/L (7-56) 06/27/17 21:18 Alkaline Phosphatase 86 units/L (35-129) 06/27/17 21:18 Troponin T < 0.010 ng/mL (0.00-0.029) 06/27/17 23:32 Total Protein 7.5 g/dL (6.3-8.2) 06/27/17 21:18 Albumin 4.2 g/dL (3.9-5) 06/27/17 21:18 Albumin/Globulin Ratio 1.3 % 06/27/17 21:18 Triglycerides 79 mg/dL (2-149) 06/29/17 11:27 Cholesterol 141 mg/dL (50-199) 06/29/17 11:27 LDL Cholesterol Direct 76 mg/dL (50-130) 06/29/17 11:27 HDL Cholesterol 63 mg/dL (40-59) H 06/29/17 11:27 Cholesterol/HDL Ratio 2.23 % 06/29/17 11:27 Lipase 11 units/L (13-60) L 06/27/17 21:18 HCG, Qual Negative (Negative) 06/27/17 21:22 Urine Color Yellow (Yellow) 06/28/17 00:24 Urine Turbidity Clear (Clear) 06/28/17 00:24 Urine pH 5.0 (5.0-7.0) 06/28/17 00:24 Ur Specific [place] 1.051 (1.003-1.030) H 06/28/17 00:24 Urine Protein 30 mg/dl mg/dL (Negative) 06/28/17 00:24 Urine Glucose (UA) >=500 mg/dL (Negative) 06/28/17 00:24 Urine Ketones 80 mg/dL (Negative) 06/28/17 00:24 Urine Blood Lg (Negative) 06/28/17 00:24 Urine Nitrite Neg (Negative) 06/28/17 00:24 Urine Bilirubin Neg (Negative) 06/28/17 00:24 Urine Urobilinogen < 2.0 mg/dL (<2.0) 06/28/17 00:24 Ur Leukocyte Esterase Neg (Negative) 06/28/17 00:24 Urine WBC (Auto) 1.0 /HPF (0.0-6.0) 06/28/17 00:24 Urine RBC (Auto) > 182.0 /HPF (0.0-6.0) 06/28/17 00:24 U Epithel Cells (Auto) 2.0 /HPF (0-13.0) 06/28/17 00:24 Urine Mucus Few /HPF 06/28/17 00:24 Urine Opiates Screen Presumptive negative 06/29/17 09:36 Urine Methadone Screen Presumptive negative 06/29/17 09:36 Ur Barbiturates Screen Presumptive negative 06/29/17 09:36 Ur Phencyclidine Scrn Presumptive negative 06/29/17 09:36 Ur Amphetamines Screen Presumptive negative 06/29/17 09:36 U Benzodiazepines Scrn Presumptive negative 06/29/17 09:36 Urine Cocaine Screen Presumptive negative 06/29/17 09:36 U Marijuana (THC) Screen Presumptive negative 06/29/17 09:36 Drugs of Abuse Note Disclamer 06/29/17 09:36
[2017-06-29] MEDS: HumuLIN R SUB-Q SCH ×2 (09:20→11:55)
[2017-06-29] MEDS: PEPCID IV SCH ×2 (09:21→21:10)
[2017-06-29] MEDS: LOVENOX SUB-Q SCH (09:21)
[2017-06-29] MEDS ORDERED: SODIUM BICARBONATE IV ONE ×2 (09:41→10:00)
[2017-06-29] MEDS ORDERED: NACL 0.9% 1000 ML 1,000 ML IV ONE (10:00)
[2017-06-29] MEDS ORDERED: KIONEX PO ONE (10:00)
[2017-06-29 10:47] LABS: Calcium 9.3 mg/dL (8.4-10.2)
[2017-06-29] MEDS ORDERED: LANTUS SUB-Q SCH (11:00)
[2017-06-29] MEDS ORDERED: D50W (25GM) Syringe IV PRN (11:07)
--- NOTE | 2017-06-29 11:21 | Event Note ---
Date: 06/29/17 Patient seen and examined medical records reviewed Patient is severely dehydrated, cachectic Complaints of severe nausea vomiting Blood sugars are uncontrolled Severe acidosis with bicarbonate of 7-8 Anion gap more than 30 Patient is in DKA We'll transfer the patient to ICU and initiate DKA protocol With insulin drip and vigorous IV hydration Case discussed with the nurse, charge nurse of the floor, charge nurse of ICU I also discussed the case with the behavior support specialist Critical care time 35 minutes
[2017-06-29] MEDS ORDERED: HumuLIN R SUB-Q SCH (11:30)
[2017-06-29 12:14] LABS: BUN/Creatinine Ratio 26; Blood Urea Nitrogen 29 mg/dL (7-17); Calcium 9.3 mg/dL (8.4-10.2); Hemolysis Index 1
[2017-06-29 12:16] LABS: Chol/HDL Ratio 2.23 %
[2017-06-29] MEDS ORDERED: HumuLIN R 100 UNITS in NACL 0.9% 99 ML IV SCH (13:00)
[2017-06-29] MEDS ORDERED: D5W/0.45% NACL/KCL 20 MEQ 20 MEQ/1,000 ML BAG IV SCH (13:30)
[2017-06-29 13:49] LABS: BUN/Creatinine Ratio 26; Blood Urea Nitrogen 26 mg/dL (7-17); Hemolysis Index 1
[2017-06-29 16:08] LABS: BUN/Creatinine Ratio 27; Blood Urea Nitrogen 24 mg/dL (7-17); Hemolysis Index 33
[2017-06-29 16:09] LABS: Amphetamine Screen,Urine PRESUMPTIVE NEGATIVE; Benzodiazepines Screen,Urine PRESUMPTIVE NEGATIVE; Cannabinoid Screen,Urine PRESUMPTIVE NEGATIVE; Cocaine Screen,Urine PRESUMPTIVE NEGATIVE; Methadone Screen,Urine PRESUMPTIVE NEGATIVE; Opiate Screen,Urine PRESUMPTIVE NEGATIVE
[2017-06-29 19:09] LABS: BUN/Creatinine Ratio 23; Blood Urea Nitrogen 21 mg/dL (7-17); Hemolysis Index 23
--- NOTE | 2017-06-29 20:19 | Consultation ---
History of Present Illness Consult date: 06/29/17 Requesting physician: SABINA DELUCA Reason for consult: other (Diabetic ketoacidosis, requiring insulin infusion for glycemic control) History of present illness: This is a 41 year-old female with a history of diabetic gastroparesis, hypertension, GERD comes to emergency room with complaints of nausea vomiting that started yesterday, unable to tolerate oral intake. Also complaining of left sided abdominal pain which she described as a dull pain, intermittent in nature and lasted for a few seconds, intensity 6/10, no radiation, she cannot identify exacerbating or relieving factors She was admitted for diabetic ketoacidosis, requiring an insulin infusion for glycemic control. Review Of Systems: Constitutional: no weight loss Ears, eyes, nose, mouth and throat: no nasal congestion, no nasal discharge, no sinus pressure, blurry vision, diplopia Neck: No neck pain or rigidity. Cardiovascular: no chest pain, orthopnea, palpitations Respiratory: no shortness of breath, cough Gastrointestinal: no hematochezia Genitourinary : no dysuria, frequency , hematuria Musculoskeletal: no muscle ache Integumentary: no rash, no pruritis Neurological: no parathesias, focal weakness Endocrine: no cold or heat intolerance, no polyuria or polydipsia Hematologic/Lymphatic: no easy bruising, no easy bleeding, no gland swelling Allergic/Immunologic: no urticaria, no angioedema. Past Medical History: diabetes , GERD, hypertension, gastroparesis Past Surgical History: cholecystectomy, tubal ligation, knee surgery Social history: denies: smoking, alcohol abuse, prescription drug abuse Family history: diabetes, hypertension Medications and Allergies Allergies Allergy/AdvReac Type Severity Reaction Status Date / Time No Known Allergies Allergy Verified 07/29/15 13:14 Home Medications Medication Instructions Recorded Confirmed Last Taken Type Insulin Detemir [Levemir Flexpen] 25 units SQ QHS 04/03/13 06/28/17 06/26/17 History 25 units Insulin Regular, Human 1 units SQ TID MDD 7 06/28/17 06/28/17 06/26/17 History 7 units Active Meds: Active Medications Acetaminophen (Tylenol) 650 mg PO Q4H PRN PRN Reason: Pain MILD(1-3)/Fever >100.5/RODRIGUEZ Last Admin: 06/28/17 13:57 Dose: 650 mg Dextrose (D50w (25gm) Syringe) 0 ml IV PRN PRN PRN Reason: Hypoglycemia Enoxaparin Sodium (Lovenox) 40 mg SUB-Q QDAY@1000 [facility] Last Admin: 06/29/17 09:21 Dose: 40 mg Famotidine (Pepcid) 20 mg IV BID [facility] Stop: 06/29/17 23:59 Last Admin: 06/29/17 09:21 Dose: 20 mg Hydromorphone HCl (Dilaudid) 0.5 mg IV Q6H PRN PRN Reason: Pain , Severe (7-10) Last Admin: 06/29/17 06:55 Dose: 0.5 mg Insulin Human Regular 100 (units/ Sodium Chloride) 100 mls @ 1 mls/hr IV TITR [facility]; Protocol Insulin Human Isoph/Insulin Regular (Humulin 70/30) 5 unit SUB-Q BIDDIAB [facility] Last Admin: 06/29/17 16:50 Dose: Not Given Metoclopramide HCl (Reglan) 10 mg IV Q6H PRN PRN Reason: Nausea And Vomiting Last Admin: 06/29/17 03:14 Dose: 10 mg Ondansetron HCl (Zofran) 4 mg IV Q4H PRN PRN Reason: Nausea And Vomiting Last Admin: 06/29/17 07:06 Dose: 4 mg Physical Examination Vital signs: Vital Signs Temp Pulse Resp BP Pulse Ox 98.3 F 108 H 17 148/95 99 06/27/17 20:47 06/27/17 20:47 06/27/17 20:47 06/27/17 20:47 06/27/17 20:47 Gen. appearance: Patient lying in bed, no apparent distress Keeps dozing off HEENT: Normocephalic, atraumatic, pupils equally round and reactive to light, extraocular movement intact, and no scleral icterus,. No JVD or thyromegaly or nodule,neck supple, no carotid bruit ,mucous membranes dry, no exudate or erythema Heart: S1, S2, regular rate and rhythm Lungs:Clear to ascultation , breathing comfortable Abdomen: Positive bowel sounds, nontender, nondistended, no organomegaly Extremity: No edema, cyanosis, clubbing Skin: No rash, nodules, warm, dry Neuro: Oriented 3, cranial nerves II-12 intact, speech is fluent, motor and sensory intact Results - Laboratory Findings CBC and BMP: 06/29/17 05:53 06/30/17 11:31 Abnormal lab findings: Abnormal Labs 06/27/17 06/27/17 06/27/17 21:18 21:18 21:32 WBC 16.1 H RBC 5.60 H Hgb MCV 63 L MCH 19 L MCHC RDW 25.5 H Seg Neuts % (Manual) 96.0 H Lymphocytes % (Manual) 3.0 L Seg Neutrophils # Man 15.5 H Lymphocytes # (Manual) 0.5 L Sodium Potassium Chloride Carbon Dioxide 20 L BUN Glucose 190 H POC Glucose 134 H Hemoglobin A1c Magnesium HDL Cholesterol Lipase 11 L Ur Specific [place] 06/28/17 06/28/17 06/28/17 00:24 12:01 12:45 WBC RBC Hgb MCV MCH MCHC RDW Seg Neuts % (Manual) Lymphocytes % (Manual) Seg Neutrophils # Man Lymphocytes # (Manual) Sodium Potassium Chloride Carbon Dioxide BUN Glucose POC Glucose 228 H Hemoglobin A1c 9.0 H Magnesium HDL Cholesterol Lipase Ur Specific [place] 1.051 H 06/28/17 06/28/17 06/29/17 16:33 22:16 05:53 WBC 18.6 H RBC 5.29 H Hgb 9.9 L MCV 66 L MCH 19 L MCHC 29 L RDW 26.6 H Seg Neuts % (Manual) 88.0 H Lymphocytes % (Manual) 8.0 L Seg Neutrophils # Man 16.4 H Lymphocytes # (Manual) Sodium Potassium Chloride Carbon Dioxide BUN Glucose POC Glucose 246 H 289 H Hemoglobin A1c Magnesium HDL Cholesterol Lipase Ur Specific [place] 06/29/17 06/29/17 06/29/17 05:53 05:54 07:21 WBC RBC Hgb MCV MCH MCHC RDW Seg Neuts % (Manual) Lymphocytes % (Manual) Seg Neutrophils # Man Lymphocytes # (Manual) Sodium Potassium 5.8 H D Chloride Carbon Dioxide 7 L* D 7 L* BUN 30 H Glucose 248 H POC Glucose 264 H Hemoglobin A1c Magnesium HDL Cholesterol Lipase Ur Specific [place] 06/29/17 06/29/17 06/29/17 09:59 11:03 11:27 WBC RBC Hgb MCV MCH MCHC RDW Seg Neuts % (Manual) Lymphocytes % (Manual) Seg Neutrophils # Man Lymphocytes # (Manual) Sodium Potassium 5.3 H Chloride 108.8 H Carbon Dioxide 8 L* BUN 30 H Glucose 267 H POC Glucose 265 H Hemoglobin A1c Magnesium 3.00 H HDL Cholesterol 63 H Lipase Ur Specific [place] 06/29/17 06/29/17 06/29/17 11:27 13:09 13:47 WBC RBC Hgb MCV MCH MCHC RDW Seg Neuts % (Manual) Lymphocytes % (Manual) Seg Neutrophils # Man Lymphocytes # (Manual) Sodium 148 H 150 H Potassium Chloride 110.7 H 115.7 H Carbon Dioxide 11 L 13 L BUN 29 H 26 H Glucose 235 H 189 H POC Glucose 160 H Hemoglobin A1c Magnesium HDL Cholesterol Lipase Ur Specific [place] 06/29/17 06/29/17 06/29/17 14:42 15:18 15:32 WBC RBC Hgb MCV MCH MCHC RDW Seg Neuts % (Manual) Lymphocytes % (Manual) Seg Neutrophils # Man Lymphocytes # (Manual) Sodium 148 H Potassium Chloride 115.8 H Carbon Dioxide 13 L BUN 24 H Glucose 123 H POC Glucose 151 H 139 H Hemoglobin A1c Magnesium HDL Cholesterol Lipase Ur Specific [place] 06/29/17 06/29/17 17:18 18:18 WBC RBC Hgb MCV MCH MCHC RDW Seg Neuts % (Manual) Lymphocytes % (Manual) Seg Neutrophils # Man Lymphocytes # (Manual) Sodium 150 H Potassium Chloride 113.5 H Carbon Dioxide 15 L BUN 21 H Glucose 143 H POC Glucose 129 H Hemoglobin A1c Magnesium HDL Cholesterol Lipase Ur Specific [place]
[2017-06-29 21:20] LABS: BUN/Creatinine Ratio 22; Blood Urea Nitrogen 20 mg/dL (7-17); Calcium 8.6 mg/dL (8.4-10.2); Hemolysis Index 1
[2017-06-30] MEDS: ZOFRAN IV PRN ×3 (03:14→21:32)
[2017-06-30] MEDS: DILAUDID IV PRN ×3 (03:21→21:32)
[2017-06-30 05:16] LABS: BUN/Creatinine Ratio 24; Blood Urea Nitrogen 19 mg/dL (7-17); Calcium 8.6 mg/dL (8.4-10.2); Hemolysis Index 0
[2017-06-30] MEDS: REGLAN IV PRN (07:48)
[2017-06-30] MEDS ORDERED: D50W (25GM) Syringe IV PRN (08:36)
--- NOTE | 2017-06-30 09:09 | Progress Note ---
Assessment and Plan Assessment and plan: 41 year-old female admitted for nausea vomiting that one day prior to admission , unable to tolerate oral intake --Diabetic ketoacidosis; resolved --Uncontrolled type1 diabetes mellitus; Accu-Chek sliding scale coverage ADA diet, and just insulin dose --Hypokalemia; replacement protocol and monitor levels --Acute on chronic gastroparesis; antiemetics, Reglan supportive care, --Gastroesophageal reflux disease; continue Pepcid --DVT prophylaxis; Lovenox History Interval history: Patient seen and examined medical records reviewed Physical slightly better today no new complaints poor oral intake Vital Signs reviewed Hospitalist Physical - Constitutional Vitals: Temp Pulse Resp BP Pulse Ox 99.5 F 110 H 18 160/90 97 06/30/17 08:44 06/30/17 08:44 06/30/17 08:44 06/30/17 08:50 06/30/17 08:44 General appearance: Present: no acute distress, cachectic - EENT Eyes: Present: PERRL, EOM intact - Neck Neck: Present: supple, normal ROM - Respiratory Respiratory effort: normal Respiratory: negative: rales, rhonchi, wheezing - Cardiovascular Rhythm: regular Heart Sounds: Present: S1 & S2 - Extremities Extremities: no ischemia, No edema - Abdominal General gastrointestinal: soft, non-tender, non-distended, normal bowel sounds - Integumentary Integumentary: Present: clear, warm - Psychiatric Psychiatric: appropriate mood/affect, cooperative - Neurologic Neurologic: CNII-XII intact, moves all extremities Results - Labs CBC & Chem 7: 06/29/17 05:53 06/30/17 11:31 Labs: Laboratory Last Values WBC 18.6 K/mm3 (4.5-11.0) H 06/29/17 05:53 RBC 5.29 M/mm3 (3.65-5.03) H 06/29/17 05:53 Hgb 9.9 gm/dl (10.1-14.3) L 06/29/17 05:53 Hct 34.6 % (30.3-42.9) 06/29/17 05:53 MCV 66 fl (79-97) L 06/29/17 05:53 MCH 19 pg (28-32) L 06/29/17 05:53 MCHC 29 % (30-34) L 06/29/17 05:53 RDW 26.6 % (13.2-15.2) H 06/29/17 05:53 Plt Count 241 K/mm3 (140-440) 06/29/17 05:53 Add Manual Diff Complete 06/29/17 05:53 Total Counted 100 06/29/17 05:53 Seg Neutrophils % Rough Rounder Machine 06/27/17 21:18 Seg Neuts % (Manual) 88.0 % (40.0-70.0) H 06/29/17 05:53 Band Neutrophils % 2.0 % 06/29/17 05:53 Lymphocytes % (Manual) 8.0 % (13.4-35.0) L 06/29/17 05:53 Reactive Lymphs % (Man) 0 % 06/29/17 05:53 Monocytes % (Manual) 2.0 % (0.0-7.3) 06/29/17 05:53 Eosinophils % (Manual) 0 % (0.0-4.3) 06/29/17 05:53 Basophils % (Manual) 0 % (0.0-1.8) 06/29/17 05:53 Metamyelocytes % 0 % 06/29/17 05:53 Myelocytes % 0 % 06/29/17 05:53 Promyelocytes % 0 % 06/29/17 05:53 Blast Cells % 0 % 06/29/17 05:53 Nucleated RBC % Not Reportable 06/29/17 05:53 Seg Neutrophils # Man 16.4 K/mm3 (1.8-7.7) H 06/29/17 05:53 Band Neutrophils # 0.4 K/mm3 06/29/17 05:53 Lymphocytes # (Manual) 1.5 K/mm3 (1.2-5.4) 06/29/17 05:53 Abs React Lymphs (Man) 0.0 K/mm3 06/29/17 05:53 Monocytes # (Manual) 0.4 K/mm3 (0.0-0.8) 06/29/17 05:53 Eosinophils # (Manual) 0.0 K/mm3 (0.0-0.4) 06/29/17 05:53 Basophils # (Manual) 0.0 K/mm3 (0.0-0.1) 06/29/17 05:53 Metamyelocytes # 0.0 K/mm3 06/29/17 05:53 Myelocytes # 0.0 K/mm3 06/29/17 05:53 Promyelocytes # 0.0 K/mm3 06/29/17 05:53 Blast Cells # 0.0 K/mm3 06/29/17 05:53 WBC Morphology Not Reportable 06/29/17 05:53 Hypersegmented Neuts Not Reportable 06/29/17 05:53 Hyposegmented Neuts Not Reportable 06/29/17 05:53 Hypogranular Neuts Not Reportable 06/29/17 05:53 Smudge Cells Not Reportable 06/29/17 05:53 Toxic Granulation Not Reportable 06/29/17 05:53 Toxic Vacuolation Not Reportable 06/29/17 05:53 Dohle Bodies Not Reportable 06/29/17 05:53 Pelger-Huet Anomaly Not Reportable 06/29/17 05:53 Lorelei Rods Not Reportable 06/29/17 05:53 Platelet Estimate Appears normal 06/29/17 05:53 Clumped Platelets Not Reportable 06/29/17 05:53 Plt Clumps, EDTA Not Reportable 06/29/17 05:53 Large Platelets Few 06/29/17 05:53 Giant Platelets Rare 06/29/17 05:53 Platelet Satelliting Not Reportable 06/29/17 05:53 Plt Morphology Comment Not Reportable 06/29/17 05:53 RBC Morphology Not Reportable 06/29/17 05:53 Dimorphic RBCs Not Reportable 06/29/17 05:53 Polychromasia 1+ 06/29/17 05:53 Hypochromasia 1+ 06/29/17 05:53 Poikilocytosis 2+ 06/29/17 05:53 Anisocytosis 2+ 06/29/17 05:53 Microcytosis 1+ 06/29/17 05:53 Macrocytosis Not Reportable 06/29/17 05:53 Spherocytes Not Reportable 06/29/17 05:53 Pappenheimer Bodies Not Reportable 06/29/17 05:53 Sickle Cells Not Reportable 06/29/17 05:53 Target Cells Not Reportable 06/29/17 05:53 Tear Drop Cells Few 06/29/17 05:53 Ovalocytes 1+ 06/29/17 05:53 Helmet Cells Rare 06/29/17 05:53 Guerrero-[place] Bodies Not Reportable 06/29/17 05:53 Ray Rings Not Reportable 06/29/17 05:53 Barry Cells Few 06/29/17 05:53 Bite Cells Not Reportable 06/29/17 05:53 Crenated Cell Not Reportable 06/29/17 05:53 Elliptocytes Few 06/29/17 05:53 Acanthocytes (Spur) 1+ 06/29/17 05:53 Rouleaux Not Reportable 06/29/17 05:53 Hemoglobin C Crystals Not Reportable 06/29/17 05:53 Schistocytes Rare 06/29/17 05:53 Malaria parasites Not Reportable 06/29/17 05:53 Vikash Bodies Not Reportable 06/29/17 05:53 Hem Pathologist Commnt No 06/29/17 05:53 Sodium 149 mmol/L (137-145) H 06/30/17 03:29 Potassium 3.4 mmol/L (3.6-5.0) L 06/30/17 03:29 Chloride 111.0 mmol/L (98-107) H 06/30/17 03:29 Carbon Dioxide 17 mmol/L (22-30) L 06/30/17 03:29 Anion Gap 24 mmol/L 06/30/17 03:29 BUN 19 mg/dL (7-17) H 06/30/17 03:29 Creatinine 0.8 mg/dL (0.7-1.2) 06/30/17 03:29 Estimated GFR > 60 ml/min 06/30/17 03:29 BUN/Creatinine Ratio 24 % 06/30/17 03:29 Glucose 167 mg/dL (65-100) H 06/30/17 03:29 POC Glucose 165 (70-105) H 06/30/17 06:03 Hemoglobin A1c 9.0 % (4-6) H 06/28/17 12:45 Calcium 8.6 mg/dL (8.4-10.2) 06/30/17 03:29 Phosphorus 3.20 mg/dL (2.5-4.5) 06/29/17 11:27 Magnesium 3.00 mg/dL (1.7-2.3) H 06/29/17 11:27 Total Bilirubin 0.40 mg/dL (0.1-1.2) 06/27/17 21:18 AST 16 units/L (5-40) 06/27/17 21:18 ALT 14 units/L (7-56) 06/27/17 21:18 Alkaline Phosphatase 86 units/L (35-129) 06/27/17 21:18 Troponin T < 0.010 ng/mL (0.00-0.029) 06/27/17 23:32 Total Protein 7.5 g/dL (6.3-8.2) 06/27/17 21:18 Albumin 4.2 g/dL (3.9-5) 06/27/17 21:18 Albumin/Globulin Ratio 1.3 % 06/27/17 21:18 Triglycerides 79 mg/dL (2-149) 06/29/17 11:27 Cholesterol 141 mg/dL (50-199) 06/29/17 11:27 LDL Cholesterol Direct 76 mg/dL (50-130) 06/29/17 11:27 HDL Cholesterol 63 mg/dL (40-59) H 06/29/17 11:27 Cholesterol/HDL Ratio 2.23 % 06/29/17 11:27 Lipase 11 units/L (13-60) L 06/27/17 21:18 HCG, Qual Negative (Negative) 06/27/17 21:22 Urine Color Yellow (Yellow) 06/28/17 00:24 Urine Turbidity Clear (Clear) 06/28/17 00:24 Urine pH 5.0 (5.0-7.0) 06/28/17 00:24 Ur Specific [place] 1.051 (1.003-1.030) H 06/28/17 00:24 Urine Protein 30 mg/dl mg/dL (Negative) 06/28/17 00:24 Urine Glucose (UA) >=500 mg/dL (Negative) 06/28/17 00:24 Urine Ketones 80 mg/dL (Negative) 06/28/17 00:24 Urine Blood Lg (Negative) 06/28/17 00:24 Urine Nitrite Neg (Negative) 06/28/17 00:24 Urine Bilirubin Neg (Negative) 06/28/17 00:24 Urine Urobilinogen < 2.0 mg/dL (<2.0) 06/28/17 00:24 Ur Leukocyte Esterase Neg (Negative) 06/28/17 00:24 Urine WBC (Auto) 1.0 /HPF (0.0-6.0) 06/28/17 00:24 Urine RBC (Auto) > 182.0 /HPF (0.0-6.0) 06/28/17 00:24 U Epithel Cells (Auto) 2.0 /HPF (0-13.0) 06/28/17 00:24 Urine Mucus Few /HPF 06/28/17 00:24 Urine Opiates Screen Presumptive negative 06/29/17 09:36 Urine Methadone Screen Presumptive negative 06/29/17 09:36 Ur Barbiturates Screen Presumptive negative 06/29/17 09:36 Ur Phencyclidine Scrn Presumptive negative 06/29/17 09:36 Ur Amphetamines Screen Presumptive negative 06/29/17 09:36 U Benzodiazepines Scrn Presumptive negative 06/29/17 09:36 Urine Cocaine Screen Presumptive negative 06/29/17 09:36 U Marijuana (THC) Screen Presumptive negative 06/29/17 09:36 Drugs of Abuse Note Disclamer 06/29/17 09:36
[2017-06-30] MEDS: NACL 0.45% 1000 ML 1,000 ML IV SCH ×2 (09:30→19:26)
[2017-06-30] MEDS: LOVENOX SUB-Q SCH (09:57)
[2017-06-30] MEDS ORDERED: PEPCID PO SCH (10:00)
[2017-06-30] MEDS ORDERED: K-DUR PO ONE (10:00)
[2017-06-30 13:38] LABS: BUN/Creatinine Ratio 23; Blood Urea Nitrogen 18 mg/dL (7-17); Calcium 9.2 mg/dL (8.4-10.2); Hemolysis Index 1
[2017-06-30] MEDS: HumuLIN R SUB-Q SCH ×3 (13:48→22:16)
--- NOTE | 2017-06-30 13:54 | Progress Note ---
Subjective Date of service: 06/30/17 Objective - Exam Narrative Exam: Gen. appearance: Patient lying in bed, no apparent distress HEENT: Normocephalic, atraumatic, pupils equally round and reactive to light, extraocular movement intact, and no sclericterus,. No JVD or thyromegaly or nodule,neck supple, no carotid bruit ,mucous membranes moist, no exudate or erythema Heart: S1, S2, regular rate and rhythm Lungs:Clear to ascultation , breathing comfortable Abdomen: Positive bowel sounds, nontender, nondistended, no organomegaly Extremity: No edema, cyanosis, clubbing Skin: No rash, nodules, warm, dry Neuro: Oriented 3, cranial nerves II-12 intact, speech is fluent, motor and sensory intact Vital Signs - 12hr 06/30/17 06/30/17 06/30/17 03:21 03:25 03:51 Temperature Pulse Rate Respiratory 18 18 Rate Respiratory 18 Rate [Abdomen] Blood Pressure Blood Pressure [Left] O2 Sat by Pulse Oximetry 06/30/17 06/30/17 06/30/17 07:35 08:39 08:44 Temperature 99.5 F 99.5 F 99.5 F Pulse Rate 111 H 110 H 110 H Respiratory 18 18 18 Rate Respiratory Rate [Abdomen] Blood Pressure 181/107 Blood Pressure 181/107 181/107 [Left] O2 Sat by Pulse 70 L 97 97 Oximetry 06/30/17 06/30/17 08:50 12:59 Temperature 99.3 F Pulse Rate 115 H Respiratory 18 Rate Respiratory Rate [Abdomen] Blood Pressure 134/80 Blood Pressure 160/90 [Left] O2 Sat by Pulse 97 Oximetry CBC and BMP: 06/29/17 05:53 06/30/17 11:31 Abnormal lab findings: Abnormal Labs 06/27/17 06/27/17 06/27/17 21:18 21:18 21:32 WBC 16.1 H RBC 5.60 H Hgb MCV 63 L MCH 19 L MCHC RDW 25.5 H Seg Neuts % (Manual) 96.0 H Lymphocytes % (Manual) 3.0 L Seg Neutrophils # Man 15.5 H Lymphocytes # (Manual) 0.5 L Sodium Potassium Chloride Carbon Dioxide 20 L BUN Glucose 190 H POC Glucose 134 H Hemoglobin A1c Magnesium HDL Cholesterol Lipase 11 L Ur Specific [place] 06/28/17 06/28/17 06/28/17 00:24 12:01 12:45 WBC RBC Hgb MCV MCH MCHC RDW Seg Neuts % (Manual) Lymphocytes % (Manual) Seg Neutrophils # Man Lymphocytes # (Manual) Sodium Potassium Chloride Carbon Dioxide BUN Glucose POC Glucose 228 H Hemoglobin A1c 9.0 H Magnesium HDL Cholesterol Lipase Ur Specific [place] 1.051 H 06/28/17 06/28/17 06/29/17 16:33 22:16 05:53 WBC 18.6 H RBC 5.29 H Hgb 9.9 L MCV 66 L MCH 19 L MCHC 29 L RDW 26.6 H Seg Neuts % (Manual) 88.0 H Lymphocytes % (Manual) 8.0 L Seg Neutrophils # Man 16.4 H Lymphocytes # (Manual) Sodium Potassium Chloride Carbon Dioxide BUN Glucose POC Glucose 246 H 289 H Hemoglobin A1c Magnesium HDL Cholesterol Lipase Ur Specific [place] 06/29/17 06/29/17 06/29/17 05:53 05:54 07:21 WBC RBC Hgb MCV MCH MCHC RDW Seg Neuts % (Manual) Lymphocytes % (Manual) Seg Neutrophils # Man Lymphocytes # (Manual) Sodium Potassium 5.8 H D Chloride Carbon Dioxide 7 L* D 7 L* BUN 30 H Glucose 248 H POC Glucose 264 H Hemoglobin A1c Magnesium HDL Cholesterol Lipase Ur Specific [place] 06/29/17 06/29/17 06/29/17 09:59 11:03 11:27 WBC RBC Hgb MCV MCH MCHC RDW Seg Neuts % (Manual) Lymphocytes % (Manual) Seg Neutrophils # Man Lymphocytes # (Manual) Sodium Potassium 5.3 H Chloride 108.8 H Carbon Dioxide 8 L* BUN 30 H Glucose 267 H POC Glucose 265 H Hemoglobin A1c Magnesium 3.00 H HDL Cholesterol 63 H Lipase Ur Specific [place] 06/29/17 06/29/17 06/29/17 11:27 13:09 13:47 WBC RBC Hgb MCV MCH MCHC RDW Seg Neuts % (Manual) Lymphocytes % (Manual) Seg Neutrophils # Man Lymphocytes # (Manual) Sodium 148 H 150 H Potassium Chloride 110.7 H 115.7 H Carbon Dioxide 11 L 13 L BUN 29 H 26 H Glucose 235 H 189 H POC Glucose 160 H Hemoglobin A1c Magnesium HDL Cholesterol Lipase Ur Specific [place] 06/29/17 06/29/17 06/29/17 14:42 15:18 15:32 WBC RBC Hgb MCV MCH MCHC RDW Seg Neuts % (Manual) Lymphocytes % (Manual) Seg Neutrophils # Man Lymphocytes # (Manual) Sodium 148 H Potassium Chloride 115.8 H Carbon Dioxide 13 L BUN 24 H Glucose 123 H POC Glucose 151 H 139 H Hemoglobin A1c Magnesium HDL Cholesterol Lipase Ur Specific [place] 06/29/17 06/29/17 06/29/17 17:18 18:18 20:37 WBC RBC Hgb MCV MCH MCHC RDW Seg Neuts % (Manual) Lymphocytes % (Manual) Seg Neutrophils # Man Lymphocytes # (Manual) Sodium 150 H 150 H Potassium Chloride 113.5 H 112.5 H Carbon Dioxide 15 L 16 L BUN 21 H 20 H Glucose 143 H 159 H POC Glucose 129 H Hemoglobin A1c Magnesium HDL Cholesterol Lipase Ur Specific [place] 06/29/17 06/30/17 06/30/17 21:19 03:29 06:03 WBC RBC Hgb MCV MCH MCHC RDW Seg Neuts % (Manual) Lymphocytes % (Manual) Seg Neutrophils # Man Lymphocytes # (Manual) Sodium 149 H Potassium 3.4 L Chloride 111.0 H Carbon Dioxide 17 L BUN 19 H Glucose 167 H POC Glucose 171 H 165 H Hemoglobin A1c Magnesium HDL Cholesterol Lipase Ur Specific [place] 06/30/17 06/30/17 11:31 11:40 WBC RBC Hgb MCV MCH MCHC RDW Seg Neuts % (Manual) Lymphocytes % (Manual) Seg Neutrophils # Man Lymphocytes # (Manual) Sodium 150 H Potassium Chloride 111.4 H Carbon Dioxide 20 L BUN 18 H Glucose 196 H POC Glucose 208 H Hemoglobin A1c Magnesium HDL Cholesterol Lipase Ur Specific [place]
[2017-06-30] MEDS ORDERED: XANAX PO STA (17:32)
[2017-06-30] MEDS ORDERED: PEPCID PO ONE (21:20)
[2017-06-30] MEDS: APRESOLINE IV PRN (21:40)
[2017-07-01] MEDS: DILAUDID IV PRN ×4 (03:35→21:48)
[2017-07-01] MEDS: ZOFRAN IV PRN ×5 (03:35→21:48)
[2017-07-01 08:01] LABS: BUN/Creatinine Ratio 18; Blood Urea Nitrogen 9 mg/dL (7-17); Calcium 8.9 mg/dL (8.4-10.2); Hemolysis Index 9
[2017-07-01] MEDS: HumuLIN R SUB-Q SCH ×4 (09:26→22:55)
[2017-07-01] MEDS: APRESOLINE IV PRN (09:27)
[2017-07-01] MEDS: LOVENOX SUB-Q SCH (09:27)
[2017-07-01] MEDS: REGLAN IV PRN ×2 (09:43→15:36)
[2017-07-01] MEDS: NACL 0.45% 1000 ML 1,000 ML IV SCH (09:44)
[2017-07-01] MEDS ORDERED: ALUM-MAG HYDROX-SIMETH 200-200-20MG/5ML PO PRN (09:58)
[2017-07-01] MEDS ORDERED: K-DUR PO ONE (10:11)
[2017-07-01] MEDS: PEPCID PO SCH ×2 (10:12→21:49)
--- NOTE | 2017-07-01 10:12 | Progress Note ---
Assessment and Plan Assessment and plan: 41 year-old female admitted for nausea vomiting that one day prior to admission , unable to tolerate oral intake --Diabetic ketoacidosis; managed with DKA protocol, now resolved --Uncontrolled type1 diabetes mellitus; secondary to noncompliance Accu-Chek sliding scale coverage ADA diet, adjust insulin dose A1c 9 --Hypokalemia; replacement protocol and monitor levels --Acute on chronic gastroparesis; antiemetics, Reglan supportive care, --Gastroesophageal reflux disease; continue Pepcid --DVT prophylaxis; Lovenox --DC planning to case management; possible home with home health nurse Closely monitor the patient and adjust management as needed Diabetic education, nutrition consult --Medical noncompliance; counseling done patient strongly advised to comply with medications and diet Possible discharge tomorrow if stable Plan of care is reviewed with the patient and her 2 sisters at the bedside and the nurse History Interval history: Patient seen and examined medical records reviewed As slightly better able to tolerate small bites of food Alert awake oriented 3 Vital signs reviewed Hospitalist Physical - Constitutional Vitals: Temp Pulse Resp BP Pulse Ox 99.3 F 64 20 168/108 98 07/01/17 08:12 07/01/17 09:27 07/01/17 09:28 07/01/17 09:27 07/01/17 08:12 General appearance: Present: no acute distress, cachectic - EENT Eyes: Present: PERRL, EOM intact - Neck Neck: Present: supple, normal ROM - Respiratory Respiratory effort: normal Respiratory: bilateral: diminished, negative: rales, rhonchi, wheezing - Cardiovascular Rhythm: regular Heart Sounds: Present: S1 & S2 - Extremities Extremities: no ischemia, No edema - Abdominal General gastrointestinal: soft, non-tender, non-distended, normal bowel sounds - Integumentary Integumentary: Present: clear, warm - Psychiatric Psychiatric: appropriate mood/affect, cooperative - Neurologic Neurologic: CNII-XII intact, moves all extremities Results - Labs CBC & Chem 7: 06/29/17 05:53 07/01/17 06:30 Labs: Laboratory Last Values WBC 18.6 K/mm3 (4.5-11.0) H 06/29/17 05:53 RBC 5.29 M/mm3 (3.65-5.03) H 06/29/17 05:53 Hgb 9.9 gm/dl (10.1-14.3) L 06/29/17 05:53 Hct 34.6 % (30.3-42.9) 06/29/17 05:53 MCV 66 fl (79-97) L 06/29/17 05:53 MCH 19 pg (28-32) L 06/29/17 05:53 MCHC 29 % (30-34) L 06/29/17 05:53 RDW 26.6 % (13.2-15.2) H 06/29/17 05:53 Plt Count 241 K/mm3 (140-440) 06/29/17 05:53 Add Manual Diff Complete 06/29/17 05:53 Total Counted 100 06/29/17 05:53 Seg Neutrophils % Eggs Inspector 06/27/17 21:18 Seg Neuts % (Manual) 88.0 % (40.0-70.0) H 06/29/17 05:53 Band Neutrophils % 2.0 % 06/29/17 05:53 Lymphocytes % (Manual) 8.0 % (13.4-35.0) L 06/29/17 05:53 Reactive Lymphs % (Man) 0 % 06/29/17 05:53 Monocytes % (Manual) 2.0 % (0.0-7.3) 06/29/17 05:53 Eosinophils % (Manual) 0 % (0.0-4.3) 06/29/17 05:53 Basophils % (Manual) 0 % (0.0-1.8) 06/29/17 05:53 Metamyelocytes % 0 % 06/29/17 05:53 Myelocytes % 0 % 06/29/17 05:53 Promyelocytes % 0 % 06/29/17 05:53 Blast Cells % 0 % 06/29/17 05:53 Nucleated RBC % Not Reportable 06/29/17 05:53 Seg Neutrophils # Man 16.4 K/mm3 (1.8-7.7) H 06/29/17 05:53 Band Neutrophils # 0.4 K/mm3 06/29/17 05:53 Lymphocytes # (Manual) 1.5 K/mm3 (1.2-5.4) 06/29/17 05:53 Abs React Lymphs (Man) 0.0 K/mm3 06/29/17 05:53 Monocytes # (Manual) 0.4 K/mm3 (0.0-0.8) 06/29/17 05:53 Eosinophils # (Manual) 0.0 K/mm3 (0.0-0.4) 06/29/17 05:53 Basophils # (Manual) 0.0 K/mm3 (0.0-0.1) 06/29/17 05:53 Metamyelocytes # 0.0 K/mm3 06/29/17 05:53 Myelocytes # 0.0 K/mm3 06/29/17 05:53 Promyelocytes # 0.0 K/mm3 06/29/17 05:53 Blast Cells # 0.0 K/mm3 06/29/17 05:53 WBC Morphology Not Reportable 06/29/17 05:53 Hypersegmented Neuts Not Reportable 06/29/17 05:53 Hyposegmented Neuts Not Reportable 06/29/17 05:53 Hypogranular Neuts Not Reportable 06/29/17 05:53 Smudge Cells Not Reportable 06/29/17 05:53 Toxic Granulation Not Reportable 06/29/17 05:53 Toxic Vacuolation Not Reportable 06/29/17 05:53 Dohle Bodies Not Reportable 06/29/17 05:53 Pelger-Huet Anomaly Not Reportable 06/29/17 05:53 Lorelei Rods Not Reportable 06/29/17 05:53 Platelet Estimate Appears normal 06/29/17 05:53 Clumped Platelets Not Reportable 06/29/17 05:53 Plt Clumps, EDTA Not Reportable 06/29/17 05:53 Large Platelets Few 06/29/17 05:53 Giant Platelets Rare 06/29/17 05:53 Platelet Satelliting Not Reportable 06/29/17 05:53 Plt Morphology Comment Not Reportable 06/29/17 05:53 RBC Morphology Not Reportable 06/29/17 05:53 Dimorphic RBCs Not Reportable 06/29/17 05:53 Polychromasia 1+ 06/29/17 05:53 Hypochromasia 1+ 06/29/17 05:53 Poikilocytosis 2+ 06/29/17 05:53 Anisocytosis 2+ 06/29/17 05:53 Microcytosis 1+ 06/29/17 05:53 Macrocytosis Not Reportable 06/29/17 05:53 Spherocytes Not Reportable 06/29/17 05:53 Pappenheimer Bodies Not Reportable 06/29/17 05:53 Sickle Cells Not Reportable 06/29/17 05:53 Target Cells Not Reportable 06/29/17 05:53 Tear Drop Cells Few 06/29/17 05:53 Ovalocytes 1+ 06/29/17 05:53 Helmet Cells Rare 06/29/17 05:53 Guerrero-[place] Bodies Not Reportable 06/29/17 05:53 [place] Rings Not Reportable 06/29/17 05:53 [place] Cells Few 06/29/17 05:53 Bite Cells Not Reportable 06/29/17 05:53 Crenated Cell Not Reportable 06/29/17 05:53 Elliptocytes Few 06/29/17 05:53 Acanthocytes (Spur) 1+ 06/29/17 05:53 Rouleaux Not Reportable 06/29/17 05:53 Hemoglobin C Crystals Not Reportable 06/29/17 05:53 Schistocytes Rare 06/29/17 05:53 Malaria parasites Not Reportable 06/29/17 05:53 Vikash Bodies Not Reportable 06/29/17 05:53 Hem Pathologist Commnt No 06/29/17 05:53 Sodium 142 mmol/L (137-145) D 07/01/17 06:30 Potassium 3.5 mmol/L (3.6-5.0) L 07/01/17 06:30 Chloride 104.3 mmol/L (98-107) 07/01/17 06:30 Carbon Dioxide 25 mmol/L (22-30) 07/01/17 06:30 Anion Gap 16 mmol/L 07/01/17 06:30 BUN 9 mg/dL (7-17) 07/01/17 06:30 Creatinine 0.5 mg/dL (0.7-1.2) L 07/01/17 06:30 Estimated GFR > 60 ml/min 07/01/17 06:30 BUN/Creatinine Ratio 18 % 07/01/17 06:30 Glucose 200 mg/dL (65-100) H 07/01/17 06:30 POC Glucose 196 (70-105) H 07/01/17 06:48 Hemoglobin A1c 9.0 % (4-6) H 06/28/17 12:45 Calcium 8.9 mg/dL (8.4-10.2) 07/01/17 06:30 Phosphorus 3.20 mg/dL (2.5-4.5) 06/29/17 11:27 Magnesium 2.40 mg/dL (1.7-2.3) H 07/01/17 06:30 Total Bilirubin 0.40 mg/dL (0.1-1.2) 06/27/17 21:18 AST 16 units/L (5-40) 06/27/17 21:18 ALT 14 units/L (7-56) 06/27/17 21:18 Alkaline Phosphatase 86 units/L (35-129) 06/27/17 21:18 Troponin T < 0.010 ng/mL (0.00-0.029) 06/27/17 23:32 Total Protein 7.5 g/dL (6.3-8.2) 06/27/17 21:18 Albumin 4.2 g/dL (3.9-5) 06/27/17 21:18 Albumin/Globulin Ratio 1.3 % 06/27/17 21:18 Triglycerides 79 mg/dL (2-149) 06/29/17 11:27 Cholesterol 141 mg/dL (50-199) 06/29/17 11:27 LDL Cholesterol Direct 76 mg/dL (50-130) 06/29/17 11:27 HDL Cholesterol 63 mg/dL (40-59) H 06/29/17 11:27 Cholesterol/HDL Ratio 2.23 % 06/29/17 11:27 Lipase 11 units/L (13-60) L 06/27/17 21:18 HCG, Qual Negative (Negative) 06/27/17 21:22 Urine Color Yellow (Yellow) 06/28/17 00:24 Urine Turbidity Clear (Clear) 06/28/17 00:24 Urine pH 5.0 (5.0-7.0) 06/28/17 00:24 Ur Specific [place] 1.051 (1.003-1.030) H 06/28/17 00:24 Urine Protein 30 mg/dl mg/dL (Negative) 06/28/17 00:24 Urine Glucose (UA) >=500 mg/dL (Negative) 06/28/17 00:24 Urine Ketones 80 mg/dL (Negative) 06/28/17 00:24 Urine Blood Lg (Negative) 06/28/17 00:24 Urine Nitrite Neg (Negative) 06/28/17 00:24 Urine Bilirubin Neg (Negative) 06/28/17 00:24 Urine Urobilinogen < 2.0 mg/dL (<2.0) 06/28/17 00:24 Ur Leukocyte Esterase Neg (Negative) 06/28/17 00:24 Urine WBC (Auto) 1.0 /HPF (0.0-6.0) 06/28/17 00:24 Urine RBC (Auto) > 182.0 /HPF (0.0-6.0) 06/28/17 00:24 U Epithel Cells (Auto) 2.0 /HPF (0-13.0) 06/28/17 00:24 Urine Mucus Few /HPF 06/28/17 00:24 Urine Opiates Screen Presumptive negative 06/29/17 09:36 Urine Methadone Screen Presumptive negative 06/29/17 09:36 Ur Barbiturates Screen Presumptive negative 06/29/17 09:36 Ur Phencyclidine Scrn Presumptive negative 06/29/17 09:36 Ur Amphetamines Screen Presumptive negative 06/29/17 09:36 U Benzodiazepines Scrn Presumptive negative 06/29/17 09:36 Urine Cocaine Screen Presumptive negative 06/29/17 09:36 U Marijuana (THC) Screen Presumptive negative 06/29/17 09:36 Drugs of Abuse Note Disclamer 06/29/17 09:36
--- NOTE | 2017-07-01 19:39 | Progress Note ---
Assessment and Plan Patient alert, awake. Resting on room air. O2 saturation 96%. No complaint of chest pain, shortness of breath or cough.DKA improved. - Patient Problems (1) Shortness of breath Current Visit: Yes Status: Acute Plan to address problem: Shortness of breath improved. O2 saturation 96% on room air. Obtaining ABGs on room air. (2) Gastroparesis due to DM Current Visit: Yes Status: Acute Plan to address problem: Aspiration precautions. (3) Abdominal pain Current Visit: Yes Status: Acute Plan to address problem: Management as per primary care. (4) Vomiting Current Visit: Yes Status: Acute Plan to address problem: Patient is on Zofran. Aspiration precautions. Obtaining chest xray. (5) Type II diabetes mellitus, uncontrolled Current Visit: No Status: Acute Plan to address problem: Mangement as per primary care. Subjective Date of service: 07/01/17 Interval history: Patient alert, awake. Resting on room air. O2 saturation 96%. No complaint of chest pain, shortness of breath or cough.DKA improved. Objective Vital Signs - 12hr 07/01/17 07/01/17 07/01/17 08:12 09:06 09:27 Temperature 99.3 F Pulse Rate 92 H 64 Respiratory 18 20 Rate Respiratory Rate [Abdomen] Blood Pressure 182/107 168/108 O2 Sat by Pulse 98 Oximetry 07/01/17 07/01/17 07/01/17 09:28 09:58 12:00 Temperature 99.2 F Pulse Rate 114 H Respiratory 20 19 18 Rate Respiratory Rate [Abdomen] Blood Pressure 160/96 O2 Sat by Pulse 96 Oximetry 07/01/17 07/01/17 07/01/17 14:47 15:37 15:53 Temperature 100.7 F H Pulse Rate 111 H Respiratory 18 18 Rate Respiratory 18 Rate [Abdomen] Blood Pressure 173/102 O2 Sat by Pulse 99 Oximetry 07/01/17 16:07 Temperature Pulse Rate Respiratory 15 Rate Respiratory Rate [Abdomen] Blood Pressure O2 Sat by Pulse Oximetry Constitutional: no acute distress, alert Eyes: non-icteric Neck: supple, no lymphadenopathy Ascultation: Bilateral: clear Cardiovascular: regular rate and rhythm Gastrointestinal: hypoactive bowel sounds Integumentary: normal Extremities: no cyanosis, no edema Neurologic: normal mental status, non-focal exam, pupils equal and round, CN II- XII normal Psychiatric: depressed CBC and BMP: 06/29/17 05:53 07/01/17 06:30 Abnormal lab findings: Abnormal Labs 06/27/17 06/27/17 06/27/17 21:18 21:18 21:32 WBC 16.1 H RBC 5.60 H Hgb MCV 63 L MCH 19 L MCHC RDW 25.5 H Seg Neuts % (Manual) 96.0 H Lymphocytes % (Manual) 3.0 L Seg Neutrophils # Man 15.5 H Lymphocytes # (Manual) 0.5 L Sodium Potassium Chloride Carbon Dioxide 20 L BUN Creatinine Glucose 190 H POC Glucose 134 H Hemoglobin A1c Magnesium HDL Cholesterol Lipase 11 L Ur Specific [place] 06/28/17 06/28/17 06/28/17 00:24 12:01 12:45 WBC RBC Hgb MCV MCH MCHC RDW Seg Neuts % (Manual) Lymphocytes % (Manual) Seg Neutrophils # Man Lymphocytes # (Manual) Sodium Potassium Chloride Carbon Dioxide BUN Creatinine Glucose POC Glucose 228 H Hemoglobin A1c 9.0 H Magnesium HDL Cholesterol Lipase Ur Specific [place] 1.051 H 06/28/17 06/28/17 06/29/17 16:33 22:16 05:53 WBC 18.6 H RBC 5.29 H Hgb 9.9 L MCV 66 L MCH 19 L MCHC 29 L RDW 26.6 H Seg Neuts % (Manual) 88.0 H Lymphocytes % (Manual) 8.0 L Seg Neutrophils # Man 16.4 H Lymphocytes # (Manual) Sodium Potassium Chloride Carbon Dioxide BUN Creatinine Glucose POC Glucose 246 H 289 H Hemoglobin A1c Magnesium HDL Cholesterol Lipase Ur Specific [place] 06/29/17 06/29/17 06/29/17 05:53 05:54 07:21 WBC RBC Hgb MCV MCH MCHC RDW Seg Neuts % (Manual) Lymphocytes % (Manual) Seg Neutrophils # Man Lymphocytes # (Manual) Sodium Potassium 5.8 H D Chloride Carbon Dioxide 7 L* D 7 L* BUN 30 H Creatinine Glucose 248 H POC Glucose 264 H Hemoglobin A1c Magnesium HDL Cholesterol Lipase Ur Specific [place] 06/29/17 06/29/17 06/29/17 09:59 11:03 11:27 WBC RBC Hgb MCV MCH MCHC RDW Seg Neuts % (Manual) Lymphocytes % (Manual) Seg Neutrophils # Man Lymphocytes # (Manual) Sodium Potassium 5.3 H Chloride 108.8 H Carbon Dioxide 8 L* BUN 30 H Creatinine Glucose 267 H POC Glucose 265 H Hemoglobin A1c Magnesium 3.00 H HDL Cholesterol 63 H Lipase Ur Specific [place] 06/29/17 06/29/17 06/29/17 11:27 13:09 13:47 WBC RBC Hgb MCV MCH MCHC RDW Seg Neuts % (Manual) Lymphocytes % (Manual) Seg Neutrophils # Man Lymphocytes # (Manual) Sodium 148 H 150 H Potassium Chloride 110.7 H 115.7 H Carbon Dioxide 11 L 13 L BUN 29 H 26 H Creatinine Glucose 235 H 189 H POC Glucose 160 H Hemoglobin A1c Magnesium HDL Cholesterol Lipase Ur Specific [place] 06/29/17 06/29/17 06/29/17 14:42 15:18 15:32 WBC RBC Hgb MCV MCH MCHC RDW Seg Neuts % (Manual) Lymphocytes % (Manual) Seg Neutrophils # Man Lymphocytes # (Manual) Sodium 148 H Potassium Chloride 115.8 H Carbon Dioxide 13 L BUN 24 H Creatinine Glucose 123 H POC Glucose 151 H 139 H Hemoglobin A1c Magnesium HDL Cholesterol Lipase Ur Specific [place] 06/29/17 06/29/17 06/29/17 17:18 18:18 20:37 WBC RBC Hgb MCV MCH MCHC RDW Seg Neuts % (Manual) Lymphocytes % (Manual) Seg Neutrophils # Man Lymphocytes # (Manual) Sodium 150 H 150 H Potassium Chloride 113.5 H 112.5 H Carbon Dioxide 15 L 16 L BUN 21 H 20 H Creatinine Glucose 143 H 159 H POC Glucose 129 H Hemoglobin A1c Magnesium HDL Cholesterol Lipase Ur Specific [place] 06/29/17 06/30/17 06/30/17 21:19 03:29 06:03 WBC RBC Hgb MCV MCH MCHC RDW Seg Neuts % (Manual) Lymphocytes % (Manual) Seg Neutrophils # Man Lymphocytes # (Manual) Sodium 149 H Potassium 3.4 L Chloride 111.0 H Carbon Dioxide 17 L BUN 19 H Creatinine Glucose 167 H POC Glucose 171 H 165 H Hemoglobin A1c Magnesium HDL Cholesterol Lipase Ur Specific [place] 06/30/17 06/30/17 06/30/17 11:31 11:40 16:47 WBC RBC Hgb MCV MCH MCHC RDW Seg Neuts % (Manual) Lymphocytes % (Manual) Seg Neutrophils # Man Lymphocytes # (Manual) Sodium 150 H Potassium Chloride 111.4 H Carbon Dioxide 20 L BUN 18 H Creatinine Glucose 196 H POC Glucose 208 H 186 H Hemoglobin A1c Magnesium HDL Cholesterol Lipase Ur Specific [place] 06/30/17 07/01/17 07/01/17 22:02 06:30 06:48 WBC RBC Hgb MCV MCH MCHC RDW Seg Neuts % (Manual) Lymphocytes % (Manual) Seg Neutrophils # Man Lymphocytes # (Manual) Sodium Potassium 3.5 L Chloride Carbon Dioxide BUN Creatinine 0.5 L Glucose 200 H POC Glucose 182 H 196 H Hemoglobin A1c Magnesium 2.40 H HDL Cholesterol Lipase Ur Specific [place] 07/01/17 07/01/17 11:25 16:38 WBC RBC Hgb MCV MCH MCHC RDW Seg Neuts % (Manual) Lymphocytes % (Manual) Seg Neutrophils # Man Lymphocytes # (Manual) Sodium Potassium Chloride Carbon Dioxide BUN Creatinine Glucose POC Glucose 284 H 176 H Hemoglobin A1c Magnesium HDL Cholesterol Lipase Ur Specific [place]
[2017-07-02] MEDS: REGLAN IV PRN ×2 (00:41→08:42)
[2017-07-02] MEDS: DILAUDID IV PRN (03:58)
[2017-07-02] MEDS: ZOFRAN IV PRN ×3 (03:58→14:07)
[2017-07-02 05:08] LABS: BUN/Creatinine Ratio 14; Blood Urea Nitrogen 7 mg/dL (7-17); Calcium 8.8 mg/dL (8.4-10.2)
[2017-07-02 05:09] LABS: Hemolysis Index 2
[2017-07-02] MEDS: NACL 0.45% 1000 ML 1,000 ML IV SCH (06:31)
[2017-07-02] MEDS: HumuLIN R SUB-Q SCH ×3 (08:38→17:00)
[2017-07-02] MEDS ORDERED: APRESOLINE IV PRN (10:07)
[2017-07-02] MEDS ORDERED: DILAUDID IV PRN (10:13)
--- NOTE | 2017-07-02 10:19 | Progress Note ---
Assessment and Plan Assessment and plan: --Leukocytosis; rule out sepsis, chest x-ray possible aspiration pneumonia In view of recurrent vomiting, gastroparesis --Hypophosphatemia; replace per protocol --Hyperkalemia; replace per protocol --Diabetic ketoacidosis; now resolved --Uncontrolled type1 diabetes mellitus; secondary to noncompliance Accu-Chek sliding scale coverage ADA diet, increase insulin dose, A1c 9 --Acute on chronic gastroparesis; antiemetics, Reglan supportive care, --Gastroesophageal reflux disease; continue Pepcid --DVT prophylaxis; Lovenox --DC planning to case management; possible home with home health nurse Closely monitor the patient and adjust management as needed Diabetic education, nutrition consult --Medical noncompliance; counseling done patient strongly advised to comply with medications and diet Possible discharge tomorrow if stable Plan of care is reviewed with the patient History Interval history: Patient seen and examined medical records reviewed Patient feels slightly better, no new complaints Vital signs reviewed Patient complains of generalized body pains, asked for more pain medications Nausea vomiting slightly improved Hospitalist Physical - Constitutional Vitals: Temp Pulse Resp BP Pulse Ox 98.1 F 101 H 20 179/106 99 07/02/17 08:20 07/02/17 08:20 07/02/17 08:20 07/02/17 08:20 07/02/17 08:20 General appearance: Present: no acute distress, cachectic - EENT Eyes: Present: PERRL, EOM intact - Neck Neck: Present: supple, normal ROM - Respiratory Respiratory effort: normal Respiratory: bilateral: diminished, negative: rales, rhonchi, wheezing - Cardiovascular Rhythm: regular Heart Sounds: Present: S1 & S2 - Extremities Extremities: no ischemia, No edema - Abdominal General gastrointestinal: soft, non-tender, non-distended, normal bowel sounds - Integumentary Integumentary: Present: clear, warm - Psychiatric Psychiatric: appropriate mood/affect, cooperative - Neurologic Neurologic: CNII-XII intact, moves all extremities Results - Labs CBC & Chem 7: 07/02/17 10:19 07/02/17 04:13 Labs: Laboratory Last Values WBC 18.6 K/mm3 (4.5-11.0) H 06/29/17 05:53 RBC 5.29 M/mm3 (3.65-5.03) H 06/29/17 05:53 Hgb 9.9 gm/dl (10.1-14.3) L 06/29/17 05:53 Hct 34.6 % (30.3-42.9) 06/29/17 05:53 MCV 66 fl (79-97) L 06/29/17 05:53 MCH 19 pg (28-32) L 06/29/17 05:53 MCHC 29 % (30-34) L 06/29/17 05:53 RDW 26.6 % (13.2-15.2) H 06/29/17 05:53 Plt Count 241 K/mm3 (140-440) 06/29/17 05:53 Add Manual Diff Complete 06/29/17 05:53 Total Counted 100 06/29/17 05:53 Seg Neutrophils % Suit Maker 06/27/17 21:18 Seg Neuts % (Manual) 88.0 % (40.0-70.0) H 06/29/17 05:53 Band Neutrophils % 2.0 % 06/29/17 05:53 Lymphocytes % (Manual) 8.0 % (13.4-35.0) L 06/29/17 05:53 Reactive Lymphs % (Man) 0 % 06/29/17 05:53 Monocytes % (Manual) 2.0 % (0.0-7.3) 06/29/17 05:53 Eosinophils % (Manual) 0 % (0.0-4.3) 06/29/17 05:53 Basophils % (Manual) 0 % (0.0-1.8) 06/29/17 05:53 Metamyelocytes % 0 % 06/29/17 05:53 Myelocytes % 0 % 06/29/17 05:53 Promyelocytes % 0 % 06/29/17 05:53 Blast Cells % 0 % 06/29/17 05:53 Nucleated RBC % Not Reportable 06/29/17 05:53 Seg Neutrophils # Man 16.4 K/mm3 (1.8-7.7) H 06/29/17 05:53 Band Neutrophils # 0.4 K/mm3 06/29/17 05:53 Lymphocytes # (Manual) 1.5 K/mm3 (1.2-5.4) 06/29/17 05:53 Abs React Lymphs (Man) 0.0 K/mm3 06/29/17 05:53 Monocytes # (Manual) 0.4 K/mm3 (0.0-0.8) 06/29/17 05:53 Eosinophils # (Manual) 0.0 K/mm3 (0.0-0.4) 06/29/17 05:53 Basophils # (Manual) 0.0 K/mm3 (0.0-0.1) 06/29/17 05:53 Metamyelocytes # 0.0 K/mm3 06/29/17 05:53 Myelocytes # 0.0 K/mm3 06/29/17 05:53 Promyelocytes # 0.0 K/mm3 06/29/17 05:53 Blast Cells # 0.0 K/mm3 06/29/17 05:53 WBC Morphology Not Reportable 06/29/17 05:53 Hypersegmented Neuts Not Reportable 06/29/17 05:53 Hyposegmented Neuts Not Reportable 06/29/17 05:53 Hypogranular Neuts Not Reportable 06/29/17 05:53 Smudge Cells Not Reportable 06/29/17 05:53 Toxic Granulation Not Reportable 06/29/17 05:53 Toxic Vacuolation Not Reportable 06/29/17 05:53 Dohle Bodies Not Reportable 06/29/17 05:53 Pelger-Huet Anomaly Not Reportable 06/29/17 05:53 Lorelei Rods Not Reportable 06/29/17 05:53 Platelet Estimate Appears normal 06/29/17 05:53 Clumped Platelets Not Reportable 06/29/17 05:53 Plt Clumps, EDTA Not Reportable 06/29/17 05:53 Large Platelets Few 06/29/17 05:53 Giant Platelets Rare 06/29/17 05:53 Platelet Satelliting Not Reportable 06/29/17 05:53 Plt Morphology Comment Not Reportable 06/29/17 05:53 RBC Morphology Not Reportable 06/29/17 05:53 Dimorphic RBCs Not Reportable 06/29/17 05:53 Polychromasia 1+ 06/29/17 05:53 Hypochromasia 1+ 06/29/17 05:53 Poikilocytosis 2+ 06/29/17 05:53 Anisocytosis 2+ 06/29/17 05:53 Microcytosis 1+ 06/29/17 05:53 Macrocytosis Not Reportable 06/29/17 05:53 Spherocytes Not Reportable 06/29/17 05:53 Pappenheimer Bodies Not Reportable 06/29/17 05:53 Sickle Cells Not Reportable 06/29/17 05:53 Target Cells Not Reportable 06/29/17 05:53 Tear Drop Cells Few 06/29/17 05:53 Ovalocytes 1+ 06/29/17 05:53 Helmet Cells Rare 06/29/17 05:53 [place] Bodies Not Reportable 06/29/17 05:53 [place] Rings Not Reportable 06/29/17 05:53 [place] Cells Few 06/29/17 05:53 Bite Cells Not Reportable 06/29/17 05:53 Crenated Cell Not Reportable 06/29/17 05:53 Elliptocytes Few 06/29/17 05:53 Acanthocytes (Spur) 1+ 06/29/17 05:53 Rouleaux Not Reportable 06/29/17 05:53 Hemoglobin C Crystals Not Reportable 06/29/17 05:53 Schistocytes Rare 06/29/17 05:53 Malaria parasites Not Reportable 06/29/17 05:53 Vikash Bodies Not Reportable 06/29/17 05:53 Hem Pathologist Commnt No 06/29/17 05:53 Sodium 140 mmol/L (137-145) 07/02/17 04:13 Potassium 3.4 mmol/L (3.6-5.0) L 07/02/17 04:13 Chloride 101.7 mmol/L (98-107) 07/02/17 04:13 Carbon Dioxide 27 mmol/L (22-30) 07/02/17 04:13 Anion Gap 15 mmol/L 07/02/17 04:13 BUN 7 mg/dL (7-17) 07/02/17 04:13 Creatinine 0.5 mg/dL (0.7-1.2) L 07/02/17 04:13 Estimated GFR > 60 ml/min 07/02/17 04:13 BUN/Creatinine Ratio 14 % 07/02/17 04:13 Glucose 186 mg/dL (65-100) H 07/02/17 04:13 POC Glucose 225 (70-105) H 07/02/17 06:27 Hemoglobin A1c 9.0 % (4-6) H 06/28/17 12:45 Calcium 8.8 mg/dL (8.4-10.2) 07/02/17 04:13 Phosphorus 1.50 mg/dL (2.5-4.5) L 07/02/17 04:13 Magnesium 2.20 mg/dL (1.7-2.3) 07/02/17 04:13 Total Bilirubin 0.40 mg/dL (0.1-1.2) 06/27/17 21:18 AST 16 units/L (5-40) 06/27/17 21:18 ALT 14 units/L (7-56) 06/27/17 21:18 Alkaline Phosphatase 86 units/L (35-129) 06/27/17 21:18 Troponin T < 0.010 ng/mL (0.00-0.029) 06/27/17 23:32 Total Protein 7.5 g/dL (6.3-8.2) 06/27/17 21:18 Albumin 4.2 g/dL (3.9-5) 06/27/17 21:18 Albumin/Globulin Ratio 1.3 % 06/27/17 21:18 Triglycerides 79 mg/dL (2-149) 06/29/17 11:27 Cholesterol 141 mg/dL (50-199) 06/29/17 11:27 LDL Cholesterol Direct 76 mg/dL (50-130) 06/29/17 11:27 HDL Cholesterol 63 mg/dL (40-59) H 06/29/17 11:27 Cholesterol/HDL Ratio 2.23 % 06/29/17 11:27 Lipase 11 units/L (13-60) L 06/27/17 21:18 HCG, Qual Negative (Negative) 06/27/17 21:22 Urine Color Yellow (Yellow) 06/28/17 00:24 Urine Turbidity Clear (Clear) 06/28/17 00:24 Urine pH 5.0 (5.0-7.0) 06/28/17 00:24 Ur Specific [place] 1.051 (1.003-1.030) H 06/28/17 00:24 Urine Protein 30 mg/dl mg/dL (Negative) 06/28/17 00:24 Urine Glucose (UA) >=500 mg/dL (Negative) 06/28/17 00:24 Urine Ketones 80 mg/dL (Negative) 06/28/17 00:24 Urine Blood Lg (Negative) 06/28/17 00:24 Urine Nitrite Neg (Negative) 06/28/17 00:24 Urine Bilirubin Neg (Negative) 06/28/17 00:24 Urine Urobilinogen < 2.0 mg/dL (<2.0) 06/28/17 00:24 Ur Leukocyte Esterase Neg (Negative) 06/28/17 00:24 Urine WBC (Auto) 1.0 /HPF (0.0-6.0) 06/28/17 00:24 Urine RBC (Auto) > 182.0 /HPF (0.0-6.0) 06/28/17 00:24 U Epithel Cells (Auto) 2.0 /HPF (0-13.0) 06/28/17 00:24 Urine Mucus Few /HPF 06/28/17 00:24 Urine Opiates Screen Presumptive negative 06/29/17 09:36 Urine Methadone Screen Presumptive negative 06/29/17 09:36 Ur Barbiturates Screen Presumptive negative 06/29/17 09:36 Ur Phencyclidine Scrn Presumptive negative 06/29/17 09:36 Ur Amphetamines Screen Presumptive negative 06/29/17 09:36 U Benzodiazepines Scrn Presumptive negative 06/29/17 09:36 Urine Cocaine Screen Presumptive negative 06/29/17 09:36 U Marijuana (THC) Screen Presumptive negative 06/29/17 09:36 Drugs of Abuse Note Disclamer 06/29/17 09:36
[2017-07-02] MEDS: LOVENOX SUB-Q SCH (10:20)
[2017-07-02] MEDS: PEPCID PO SCH (10:21)
[2017-07-02] MEDS ORDERED: KPHOS 45 MMOL in NACL 0.9% 500 ML 500 ML IV ONE (10:30)
--- NOTE | 2017-07-02 11:15 | XRay Report ---
CHEST 2 VIEWS INDICATION: Shortness of breath, vomiting, possible aspiration. COMPARISON: 04/03/2013 FINDINGS: Frontal and lateral chest radiographs demonstrate normal cardiomediastinal silhouette. Clear lungs. Unremarkable bones. Stable cholecystectomy clips. CONCLUSION: No acute disease in the chest. Thank you for the opportunity to participate in this patient's care.
[2017-07-02 11:39] LABS: Hematocrit 29.3 % (30.3-42.9); Hemoglobin 9.1 gm/dl (10.1-14.3); Mean Corpuscular HGB Conc 31 % (30-34); Red Blood Count 4.72 M/mm3 (3.65-5.03)
[2017-07-02 11:46] LABS: Mean Corpuscular Hemoglobin 19 pg (28-32); Mean Corpuscular Volume 62 fl (79-97); Red Cell Distribution Width 25.9 % (13.2-15.2)
[2017-07-02 11:47] LABS: Platelet Count 179 K/mm3 (140-440)
[2017-07-02] MEDS ORDERED: LEVAQUIN 750MG/150ML 750 MG/150 ML BAG IV SCH (12:00)
[2017-07-02 12:30] LABS: Basophils % (Manual) 0 % (0.0-1.8); Total Cells Counted 100
[2017-07-02 12:31] LABS: Acanthocytes 1+; Anisocytosis 2+; Burr Cells Few; Giant Platelets Rare; Hypochromasia 1+; Large Platelets Few; Ovalocytes 1+; Poikilocytosis 1+; Schistocytes Rare; Tear Drop Cells Few
[2017-07-02] MEDS ORDERED: APRESOLINE PO SCH (14:00)
--- NOTE | 2017-07-02 16:42 | Discharge Summary ---
Providers - Providers Date of Admission: 06/28/17 01:59 Date of discharge: 07/02/17 Attending physician: SABINA DELUCA 06/29/17 11:07 Consult to Dietitian/Nutrition [CONS] Routine Physician Instructions: Reason For Exam: DKA Reason for Consult: Nutrition Recommendations Reason for Consult: Diet education 06/29/17 11:09 Consult to Case Management [CONS] Routine Services Needed at Discharge: Home Health Services Notified:: cm 06/29/17 15:36 Consult to Physician [CONS] Routine Comment: Consulting Provider: JASWINDER BOYKIN Physician Instructions: Reason For Exam: Critical care consult/DKA Primary care physician: ARLYN GRAHAM Hospitalization Condition: Stable Disposition: DC-30 STILL A PATIENT Core Measure Documentation - Palliative Care Palliative Care/ Comfort Measures: Not Applicable - Core Measures Any of the following diagnoses?: none Exam - Constitutional Vitals: Temp Pulse Resp BP Pulse Ox 98.7 F 109 H 20 168/99 98 07/02/17 15:03 07/02/17 15:03 07/02/17 15:03 07/02/17 15:03 07/02/17 15:03 General appearance: Present: no acute distress, well-nourished Plan Activity: no restrictions Diet: diabetic Additional Instructions: Follow private campground caretaker in one week. Advised to comply with medications, diet and follow-up DrBella visits Follow up with: ARLYN GRAHAM MD [Primary Care Provider] - 3-5 Days Prescriptions: hydrALAZINE [Apresoline TAB] 10 mg PO Q8HR #30 tablet Ondansetron [Zofran TAB] 4 mg PO Q8HR PRN #15 tablet PRN Reason: Nausea oxyCODONE /ACETAMINOPHEN [Percocet 5/325] 1 tab PO BID PRN #10 tablet PRN Reason: Pain
[2017-07-02 16:43] VITALS: BP 154/99
== END 2017-07-02 17:36 | disposition home health service (06) | DRG 871 ==
LOC: ED 20:22 → 3A 06-28 01:59 → CC1 06-29 15:03 → 3A 06-29 18:56
PROVIDERS: ADMIT Internal Medicine; ATTEND Internal Medicine
PROC: 4A033R1 Measurement of Arterial Saturation, Peripheral, Percutaneous Approach (ICD-10-PCS; principal; 2017-07-02)
DX: A41.9 Sepsis, unspecified organism (principal); J69.0 Pneumonitis due to inhalation of food and vomit; E10.10 Type 1 diabetes mellitus with ketoacidosis without coma; E10.43 Type 1 diabetes mellitus with diabetic autonomic (poly)neuropathy; K31.84 Gastroparesis; K21.9 Gastro-esophageal reflux disease without esophagitis; E87.5 Hyperkalemia; D25.9 Leiomyoma of uterus, unspecified; E86.0 Dehydration; E87.6 Hypokalemia; E83.39 Other disorders of phosphorus metabolism; I10 Essential (primary) hypertension; Z90.49 Acquired absence of other specified parts of digestive tract; Z79.4 Long term (current) use of insulin; Z88.8 Allergy status to other drugs, medicaments and biological substances; Z79.899 Other long term (current) drug therapy; Z98.51 Tubal ligation status; Z82.49 Family history of ischemic heart disease and other diseases of the circulatory system; Z83.3 Family history of diabetes mellitus; Z91.19 Patient's noncompliance with other medical treatment and regimen
CPT/HCPCS: 36415; 71046; 74177; 80048; 80053; 80061; 80307; 81001; 82374; 82962; 83036; 83690; 83735; 84100; 84484; 84703; 85007; 85025; 87040; 93005; 93010; J0360; J1170; J1200; J1650; J1815; J1956; J2270; J2405; J2765; J7030; J7040; Q9967